=== PATIENT | female | born 1975 | race African-American/Black ===

== ENCOUNTER 2020-10-10 09:17 | Emergency (ER) | payer MEDICARE, OTHER, MEDICAID, SELFPAY ==
[2020-10-10 09:25] VITALS: BP 134/83; PULSE 101; RESP 18; TEMP 37.1; O2SAT 99
[2020-10-10] MEDS: SODIUM CHLORIDE 0.9% IV 1,000 ML 999 ML IV CONT (09:51)
[2020-10-10] MEDS: METOCLOPRAMIDE HCL INJ 10 MG/2 ML VIAL IV PUSH (09:51)
--- NOTE | 2020-10-10 09:58 | ED.GENADULT ---
HPI - General Adult General Chief complaint: Nausea/Vomiting/Diarrhea Stated complaint: side effects from meds Time Seen by Provider: 10/10/20 09:18 Source: patient and family Mode of arrival: ambulatory Limitations: no limitations History of Present Illness HPI narrative: Patient presents with chief complaint of nausea and vomiting that has been present since being [facility] on Friday due to seizures. Patient has a history of seizures and sees Dr. Cardoza and is prescribed Dilantin daily. Patient admits that she does not take her Dilantin regularly despite knowing that it controls her seizures. Patient states that she spoke to Dr. Cardoza yesterday and informed him that she has been having nausea and vomiting since Friday and he prescribed a nausea medication that she believes is either Reglan or Zofran which she has taken twice and has helped some with the nausea. Patient states that she is on 3 capsules of Dilantin daily but she skipped her dose yesterday and took a dose this morning. Patient states that she was told by Dr. Cardoza that the reason she has had seizures is because she has a well her Dilantin levels to get too low. Patient denies having any additional seizures since Friday. Patient denies headache, nuchal rigidity, abdominal pain, diarrhea,, chest pain or shortness of breath. Related Data Home Medications Medication Instructions Recorded Confirmed phenytoin sodium extended 100 mg PO 10/10/20 Allergies Allergy/AdvReac Type Severity Reaction Status Date / Time Sulfa (Sulfonamide Allergy Mild hives Verified 10/10/20 09:42 Antibiotics) egg Allergy Anaphylaxis Verified 10/10/20 09:31 pineapple Allergy Hives Verified 10/10/20 09:31 donuts Allergy Hives Uncoded 10/10/20 09:31 Review of Systems Review of Systems: Narrative: CONSTITUTIONAL: Denies fever, chills, or sweats. EYES: Denies visual changes, redness, or discharge. ENT: Denies rhinorrhea, congestion, sore throat, or otalgia. CARDIOVASCULAR: Denies chest pain, palpitations, or edema. RESPIRATORY: Denies cough or dyspnea. GASTROINTESTINAL: Reports nausea vomiting denies abdominal pain or diarrhea. GENITOURINARY: Denies dysuria or hematuria. SKIN: Denies rash or itching. MUSCULOSKELETAL: Denies back pain, joint pain, or myalgia. NEUROLOGIC: Denies headache, numbness, dizziness, or weakness. PSYCHIATRIC: Denies anxiety or depression. PMFSH Social History Social History Gender identity (if verbalized by the patient): Female Exam Narrative: Exam Narrative: GENERAL: Well-appearing, well-nourished, and in no acute distress. HEAD: Normocephalic, atraumatic. EYES: PERRLA and EOMI. ENT: Nares clear, no rhinorrhea or epistaxis. Mucous membranes moist. Bilateral TMs pearly wiley nonbulging NECK: Supple. No adenopathy or masses. No rigidity. Range of motion intact. CHEST: Clear to auscultation. No respiratory distress. No wheezes rales or rhonchi HEART: Regular rate and rhythm. No murmur heard. Normal peripheral pulses. ABDOMEN: Soft, nontender, nondistended, normal active bowel sounds. EXTREMITIES: Normal range of motion. No edema. SKIN: Warm, dry, no rash. NEURO: No focal deficits. Alert and oriented x3. Patient speaking in complete sentences without difficulty. No active seizures at this time. PSYCH: Normal mood and affect. Course Vital Signs Vital signs: Vital Signs Temperature 98.8 F 10/10/20 09:25 Pulse Rate 101 H 10/10/20 09:25 Respiratory Rate 18 10/10/20 09:25 Blood Pressure 134/83 10/10/20 09:25 Pulse Oximetry 99 10/10/20 09:25 Temperature 98.8 F 10/10/20 09:25 Pulse Rate 89 10/10/20 11:56 Respiratory Rate 17 10/10/20 11:56 Blood Pressure 136/78 10/10/20 11:56 Pulse Oximetry 98 10/10/20 11:56 Medical Decision Making MDM Narrative Medical decision making narrative: Consult with patient's neurologist Dr. Cardoza who states patient should continue taking her 300 mg of Dilantin and follow-up wit
[2020-10-10 10:33] LABS: Basophils Percent Auto 0.2 % (0.2-1.2); Hematocrit 36.6 % (37.0-47.0); Hemoglobin 10.7 g/dL (12.0-15.0); Immature Granulocyte Absolute 0.01 K/mm3 (0.00-0.031); Immature Granulocyte Percent A 0.2 % (0-0.5); Lymphocytes Absolute Auto 0.51 K/mm3 (0.9-3.2); Lymphocytes Percent Auto 12.5 % (18.3-44.2); Mean Corpuscular HGB Conc 29.2 g/dl (32-36); Mean Corpuscular Hemoglobin 20.3 pg (26-34); Mean Corpuscular Volume 69.4 fl (80-100); Mean Platelet Volume 10.6 fl (7.4-10.4); Monocytes Absolute Auto 0.3 K/mm3 (0.1-0.6); Monocytes Percent Auto 8.4 % (2.6-8.5); Neutrophils Absolute Auto 3.2 K/mm3 (1.3-6.7); Neutrophils Percent Auto 78.7 % (45.5-73.1); Platelet Count Result 253 k/mm3 (150-375); Red Blood Count 5.27 M/mm3 (4.2-5.4); Red Cell Distribution Width 17.7 % (11.5-14.5); White Blood Count 4.1 K/mm3 (4.5-10.0)
[2020-10-10 10:40] VITALS: BP 146/80; PULSE 80; RESP 14; O2SAT 98
[2020-10-10 10:41] LABS: Add Urine Microscopic? YES; Appearance Urine Clear (Clear); Bacteria Urine Trace /hpf; Bilirubin Urine Negative (Negative); Blood Urine Negative (Negative); Color Urine Yellow (Yellow); Glucose Urine UA Negative (Negative); Ketones Urine 1+ mg/dL (Negative); Leukocyte Esterase Ur Trace LEU/UL (Negative); Mucus Urine Moderate /lpf; Nitrate Urine Negative (Negative); Protein Urine 2+ mg/dL (Negative); Squamous Epithelial Cell Urine Occasional /hpf (Few); Urobilinogen Urine Negative mg/dL (<2.0)
[2020-10-10 10:43] LABS: Alanine Aminotransferase 13 U/L (4-35); Albumin Level 4.1 g/dL (3.5-5.1); Alkaline Phosphatase 47 U/L (38-126); Anion Gap 10 mmol/L (8-16); Aspartate Amino Transferase 23 U/L (14-36); Bilirubin,Total < 0.1 mg/dL (0.2-1.3); Blood Urea Nitrogen 8 mg/dL (7-17); Calcium 8.7 mg/dL (8.4-10.2); Carbon Dioxide 27 mmol/L (22-30); Chloride 102 mmol/L (98-107); Estimated CRCL calculation 75 ml/min; Estimated Glomerular Filt Rate > 60; Glucose 102 mg/dL (65-105); Potassium 3.7 mmol/L (3.4-5.0); Sodium 139 mmol/L (137-145)
[2020-10-10 11:00] LABS: Phenytoin Dilantin < 3 ug/mL (10-20)
[2020-10-10 11:56] VITALS: BP 136/78; PULSE 89; RESP 17; O2SAT 98
[2020-10-10 12:18] VITALS: BP 136/78; PULSE 89; RESP 17; O2SAT 98
== END 2020-10-10 12:19 | disposition home or self-care (01) ==
PROVIDERS: Physician Assistant; Emergency Provider Emergency Medicine; PCP Internal Medicine Infectious Disease
DX: N39.0 Urinary tract infection, site not specified (principal); R11.2 Nausea with vomiting, unspecified; R56.9 Unspecified convulsions
CPT/HCPCS: 36415; 80053; 80185; 81001; 85025; 85055; 87086; 87088; 96361; 96374; 99284; J2765; J7030

== ENCOUNTER 2020-12-01 14:26 | Outpatient (CLI) | payer OTHER, MEDICARE, MEDICAID, SELFPAY ==
[2020-12-01 14:46] LABS: Basophils Percent Auto 0.3 % (0.2-1.2); Eosinophils Absolute Auto 0.2 K/mm3 (0-0.3); Eosinophils Percent Auto 3.2 % (0-4.4); Hematocrit 32.9 % (37.0-47.0); Hemoglobin 9.6 g/dL (12.0-15.0); Immature Granulocyte Absolute 0.03 K/mm3 (0.00-0.031); Immature Granulocyte Percent A 0.5 % (0-0.5); Lymphocytes Percent Auto 31.9 % (18.3-44.2); Mean Corpuscular HGB Conc 29.2 g/dl (32-36); Mean Corpuscular Hemoglobin 20.7 pg (26-34); Mean Corpuscular Volume 70.9 fl (80-100); Mean Platelet Volume 9.6 fl (7.4-10.4); Monocytes Absolute Auto 0.6 K/mm3 (0.1-0.6); Monocytes Percent Auto 9.9 % (2.6-8.5); Neutrophils Absolute Auto 3.2 K/mm3 (1.3-6.7); Neutrophils Percent Auto 54.2 % (45.5-73.1); Platelet Count Result 404 k/mm3 (150-375); Red Blood Count 4.64 M/mm3 (4.2-5.4); Red Cell Distribution Width 19.9 % (11.5-14.5)
[2020-12-01 15:04] LABS: Hypochromasia 1+ (NORMAL); Ovalocytes 1+ (NORMAL); Platelet Estimate Increased (Adequate)
[2020-12-01 15:05] LABS: Crenated RBC 1+ (NORMAL); Tear Drop Cells 1+ (NORMAL)
[2020-12-01 17:54] LABS: Phenytoin Dilantin < 3 ug/mL (10-20)
== END 2020-12-01 14:27 | disposition home or self-care (01) ==
PROVIDERS: Anesthesiology; PCP Internal Medicine Infectious Disease; Visit Provider Obstetrics & Gynecology
DX: N85.2 Hypertrophy of uterus (principal); G40.909 Epilepsy, unspecified, not intractable, without status epilepticus; Z01.818 Encounter for other preprocedural examination
CPT/HCPCS: 36415; 80185; 85025

== ENCOUNTER 2020-12-05 01:32 | Outpatient (CLI) | payer OTHER, MEDICARE, MEDICAID, SELFPAY ==
[2020-12-05 19:22] LABS: SARS-CoV-2 RNA PCR Positive
== END 2020-12-05 01:33 | disposition home or self-care (01) ==
LOC: ANHCOVIDDT 01:32
PROVIDERS: PCP Internal Medicine Infectious Disease; Visit Provider Obstetrics & Gynecology
DX: U07.1 COVID-19 (principal)
CPT/HCPCS: C9803; U0003; U0005

== ENCOUNTER 2021-01-05 00:35 | Day surgery (SDC) | payer OTHER, MEDICARE, MEDICAID, SELFPAY ==
[2020-11-30 16:04] VITALS: BMI 38.5
--- NOTE | 2020-12-06 08:47 | PM.IMHP ---
H&P: HPI History of Present Illness Date/Time: 12/06/20 08:47 Chief Complaint: fibroids Narrative: Rory Georges is a 45 year old female is admitted for robotic measured made and bilateral salpingectomy. The right ovary is surgically absent. She has had pain and bleeding. I offered her cannot open EC common intact as versus surgical intervention she opted for the latter. The left tube will be taken this procedure. Risks and benefits reviewed including but not exclusive , aspiration 1 8, bleeding, transfusion, perforation bladder, ureters, or other internal organs with need for open laparotomy. She was good understanding. She had all questions answered. She asked to proceed Review of Systems Review of Systems: All systems reviewed & are unremarkable except as noted in HPI and below PMFSH Social History Social History Substance use: never Gender identity (if verbalized by the patient): Female Spiritual care concerns: No Meds Home Medications and Allergies Home Medications Medication Instructions Recorded Confirmed Type phenytoin sodium extended 100 mg PO TID 10/10/20 11/30/20 History albuterol 90 mcg INHALATION PRN PRN 11/30/20 11/30/20 History Allergies Allergy/AdvReac Type Severity Reaction Status Date / Time Sulfa (Sulfonamide Allergy Mild hives Verified 11/30/20 16:02 Antibiotics) egg Allergy Anaphylaxis Verified 11/30/20 16:02 pineapple Allergy Hives Verified 11/30/20 16:02 donuts Allergy Hives Uncoded 11/30/20 16:02 Exam Const: General: no acute distress Eyes: General: appearance normal, both eyes and all related structures Neck: Neck: supple and no JVD Thyroid: thyroid normal Resp: Effort & Inspection: normal respiratory effort Auscultation: clear to auscultation bilaterally Cardio: Rate: regular rate Rhythm: regular rhythm GI: Inspection: non-distended GI Palp: Yes Soft to palpation, No Tenderness to palpation present (GI) and No Guarding due to palpation present (GI) Auscultation: normal bowel sounds : General: Yes bladder normal to inspection External Female Exam: normal external appearance Speculum Exam - Vagina: normal appearance of the vagina Speculum Exam - Cervix: normal appearance of the cervix Bimanual exam- vagina & uterus: enlarged Skin: General skin exam: no rashes or lesions noted Extrem: General: normal to inspection and no edema Psych: Mental Status: mental status grossly normal Affect: normal affect Assessment and Plan Additional Plan impression: Enlarged fibroid uterus Plan: Robotic total vaginal hysterectomy and left salpingectomy
--- NOTE | 2021-01-01 15:01 | PC.NURSE ---
1500-PT RESCHEDULED FROM 12/08/2020 AND STATES NO CHANGES OTHER THAN SYMPTOM FREE POSITIVE COVID TEST. MEDICATIONS/ALLERGIES REVIEWED. INSTRUCTIONS REVIEWED AND UPDATED. WILL COMPLETE T/S ON DAY OF SURGERY. SPOKE WITH DR. MONROE-NO NEED TO REPEAT PHENYTOIN LEVEL (AWARE RESULT NONTHERAPEUTIC).
--- NOTE | 2021-01-02 14:20 | PM.IMHP ---
H&P: HPI History of Present Illness Date/Time: 01/02/21 14:20 Chief Complaint: fibroids Narrative: Rory Georges is a 45 year old female is admitted for robotic total vaginectomy and left salpingectomy secondary to her and pelvic pain and uterine fibroids. She has heavy bleeding pain and discomfort. Ultrasound has noted the uterus to be markedly enlarged. Risks and benefits were reviewed in full Review of Systems Review of Systems: All systems reviewed & are unremarkable except as noted in HPI and below PMFSH Social History Social History Substance use: never Gender identity (if verbalized by the patient): Female Spiritual care concerns: No Meds Home Medications and Allergies Home Medications Medication Instructions Recorded Confirmed Type phenytoin sodium extended 100 mg PO TID 10/10/20 01/01/21 History albuterol 90 mcg INHALATION PRN PRN 11/30/20 01/01/21 History Allergies Allergy/AdvReac Type Severity Reaction Status Date / Time egg Allergy Severe Anaphylaxis Verified 01/01/21 14:54 pineapple Allergy Severe Hives Verified 01/01/21 14:54 Sulfa (Sulfonamide Allergy Mild hives Verified 11/30/20 16:02 Antibiotics) donuts Allergy Severe Hives Uncoded 01/01/21 14:54 Exam Const: General: no acute distress Eyes: General: appearance normal, both eyes and all related structures Neck: Neck: supple and no JVD Thyroid: thyroid normal Resp: Effort & Inspection: normal respiratory effort Auscultation: clear to auscultation bilaterally Cardio: Rate: regular rate Rhythm: regular rhythm GI: Inspection: non-distended GI Palp: Yes Soft to palpation, No Tenderness to palpation present (GI) and No Guarding due to palpation present (GI) Auscultation: normal bowel sounds : General: Yes bladder normal to inspection External Female Exam: normal external appearance Speculum Exam - Vagina: normal appearance of the vagina Speculum Exam - Cervix: normal appearance of the cervix Bimanual exam- vagina & uterus: enlarged Skin: General skin exam: no rashes or lesions noted Extrem: General: normal to inspection and no edema Psych: Mental Status: mental status grossly normal Affect: normal affect Assessment and Plan Additional Plan impression: Enlarged uterus with uterine fibroids and pain Plan: Robotic total vaginectomy and left salpingectomy
[2021-01-05] VITALS (16 sets, daily range): BP systolic 134–158; BP diastolic 7–103; PULSE 66–94; RESP 14–22; TEMP 36.1–36.7; O2SAT 99–100; BMI 39.4
--- NOTE | 2021-01-05 06:20 | WPDHPUPDATE1 ---
History and Physical Update Update Date/Time: 01/05/21 06:20 History and Physical has been reviewed, including an updated exam of the patient. There are NO changes in the patient's condition. Risks, benefits, and alternatives have been discussed and questions answered. Patient agrees to proceed with procedure.
[2021-01-05] MEDS: ACETAMINOPHEN 500 MG TABLET 1000 MG PO (08:34)
[2021-01-05] MEDS: LACTATED RINGERS 1,000 ML 30 ML IV CONT ×2 (08:34→12:17)
[2021-01-05] MEDS: KETOROLAC 15 MG/ML VIAL (*BKC) IV PUSH (08:34)
--- NOTE | 2021-01-05 09:06 | WPDANESEPPF ---
Anes - Initial Pre Proc Eval Procedure: Operation Date: 01/05/21 09:30 Proposed Procedures p Robotic Assisted Total Vaginal Hysterectomy, Left Salpingectomy - Harvinder Zheng MD Date/Time: 01/05/21 09:06 Surgeon: Harvinder Zheng MD Pre Op Diagnosis: Pelvic Pain, Enlarged Uterus,Fibroids Patient Data Age: 45 Gender: F Height: 5 ft 2 in Weight: 97.7 kg Last Vital Signs Temp 97.2 F L 01/05/21 08:00 Pulse 88 01/05/21 08:00 Resp 18 01/05/21 08:00 BP 149/99 H 01/05/21 08:00 Pulse Ox 100 01/05/21 08:00 Allergies Allergy/AdvReac Type Severity Reaction Status Date / Time egg Allergy Severe Anaphylaxis Verified 01/05/21 08:05 pineapple Allergy Severe Hives Verified 01/05/21 08:05 Sulfa (Sulfonamide Allergy Mild hives Verified 01/05/21 08:05 Antibiotics) donuts Allergy Severe Hives Uncoded 01/05/21 08:05 Home Medications Medication Instructions Recorded Confirmed Type phenytoin sodium extended 100 mg PO TID 10/10/20 01/05/21 History albuterol 90 mcg INHALATION PRN PRN 11/30/20 01/05/21 History Patient hx anesthesia problems: none Family hx anesthesia problems: none [facility] Past Medical History Medical History (Updated 01/05/21 @ 08:08 by Mike Brown MD) Asthma Seizure last one September 2020 Social History Social History Substance use: never Gender identity (if verbalized by the patient): Female Spiritual care concerns: No Anes - Eval Final PreProcedure Day of Procedure 01/05/21 09:06 Patient weight: morbidly obese Heart: regular rate and rhythm Lungs: clear to auscultation Airway: Mallampati scale class III Neurological: alert and oriented Last oral intake: >/= 8 hours ASA classification: III Emergent: no Anesthetic plan: proceed Anesthesia type and monitoring: general ETT and standard monitoring Informed Consent: The patient's anesthetic plan and its attendant risks and benefits were discussed with the patient/family/POA. Questions were solicited and answers provided to the satisfaction of the patient/family/POA.
--- NOTE | 2021-01-05 09:09 | SUR.PREOP ---
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 NO NEED TO UPDATE.
[2021-01-05] MEDS: ceFAZolin 2 GM/D5W 50 ML 2 GM/50 ML BAG IVPB (09:33)
--- NOTE | 2021-01-05 12:04 | PM.PROC ---
Procedure Note - Detailed Date of procedure: 01/05/21 Pre-op diagnosis: Pelvic Pain, Enlarged Uterus,Fibroids Surgeon: Harvinder Zheng MD Postop diagnosis: Pelvic pain/symptomatic uterine fibroids Procedure: Robotic total vaginal hysterectomy and left salpingectomy Anesthesia: General endotracheal EBL: 200cc Complications: None Findings: A markedly enlarged fibroid uterus. Absent right ovary and tube normal-appearing left tube and ovary Description of procedure: The patient was prepped and draped in the normal sterile fashion placed in dorsal lithotomy position. Under excellent general endotracheal anesthesia weighted speculum placed in posterior fornix of vagina. Anterior lip of the cervix grasped with single-tooth tenaculum and the uterus sounded to 12cm. Serial dilatation with fragmented dilators performed followed by passage of the 10. GABINO and the 3. And half cold cup. Next the 16 [place] catheter was placed in the bladder. The weighted speculum was removed. The gloves were changed. A supraumbilical incision made in the Veress needle passed in the abdomen and the abdomen was filled with CO2 gas [id number]. The trocar was advanced in the abdomen. Downside visualized and no injury seen. The patient placed in Trendelenburg and right left lateral quadrant incisions made. The 8mm trocars advanced under direct visualization assuring no injury. An 8mm trocar was advanced in right upper assuring no injury. The robot was docked. Attention was turned to the console. Adhesions were seen from the anterior wall to the omentum and this was sharply dissected with these. The uterus was notably large bulky with multiple a small sized fibroids. The round ligament on left was grasped, burned, cut anteriorly the bladder flap was formed bladder reflected caudally to the opposite round ligament was clamped, burned, cut. The right ovary and tube were noted to be missing the left tube was normal as was the left ovary and the tube was sharply dissected left attached to the its uterine origins. Cardinal and broad ligaments on the left were serially skeletonized although this was somewhat difficult secondary to the uterine fibroids but they were brought down to the level of the uterine vessels on the left. Uterine vessels were serially skeletonized and individually clamped, burned, cut. These were large tortuous as expected. The right utero-ovarian ligament was skeletonized this was clamped, burned, cut. The cardinal and broad ligaments were then serially skeletonized along the lateral edge of the cervix and uterus clamping burning and cutting until the uterine vessels could be seen on the right. These were individually clamped, burned, cut. Blanching of the uterus was seen as a remark and number of fibroids present these were Schueler gout the for the colpotomy incision was made and would be used later to be taken out in its no fashion. The once these had been cleared, the colpotomy incision was made. The cervix was brought through the vagina. The fibroids for followed. One loosened but fell into the cul-de-sac and this was grabbed and removed through the vagina. Blood loss was estimated 200cc at that point. The vagina was closed with continuous running 0V lock from lateral edge to lateral edge back to the midline. Irrigation undertaken and blood loss estimated 200cc hematuria was placed on the raw surface area and the robot was undocked after and gas followed removal. Trocars removed and the incisions closed with 4 O Monocryl and glue. The patient was awakened. She went to recovery in satisfactory condition. All sponge, needle, instrument counts were correct. There were no immediate complications
[2021-01-05] MEDS: fentaNYL CITRATE INJ (*CRX) 100 MCG/2 ML VIAL 25 MCG IV PUSH ×3 (12:54→13:14)
--- NOTE | 2021-01-05 13:45 | PC.NURSE ---
This patient, Rory Georges, was received from PACU per bed to room 278. Patient/family oriented to unit policies and routines
[2021-01-05] MEDS: DEXTROSE 5%/LACTATED RINGERS 1,000 ML 125 ML IV CONT ×2 (14:21→22:28)
[2021-01-05] MEDS: MORPHINE SULFATE (*CRX) 4 MG/ML INJ IV PUSH (14:21)
[2021-01-05] MEDS: KETOROLAC 30 MG/ML VIAL (*BKC) IV PUSH ×2 (16:38→22:29)
[2021-01-05] MEDS: ONDANSETRON INJ 4 MG/2 ML VIAL IV PUSH (16:51)
[2021-01-05] MEDS: PHENYTOIN SODIUM 100 MG CAP PO (22:33)
[2021-01-06 05:09] VITALS: BP 114/70; PULSE 86; RESP 16; TEMP 36.6; O2SAT 98
[2021-01-06] MEDS: HYDROcodone/acetaminophen (*CRX) 10-325 MG TABLET 1 TAB PO (05:12)
[2021-01-06] MEDS: IBUPROFEN 600 MG TABLET PO ×2 (05:13→12:53)
[2021-01-06] MEDS: DEXTROSE 5%/LACTATED RINGERS 1,000 ML 125 ML IV CONT (05:13)
[2021-01-06 06:16] LABS: Basophils Percent Auto 0.1 % (0.2-1.2); Eosinophils Percent Auto 0.5 % (0-4.4); Hematocrit 24.8 % (37.0-47.0); Hemoglobin 7.3 g/dL (12.0-15.0); Immature Granulocyte Absolute 0.03 K/mm3 (0.00-0.031); Immature Granulocyte Percent A 0.4 % (0-0.5); Lymphocytes Absolute Auto 1.23 K/mm3 (0.9-3.2); Lymphocytes Percent Auto 16.9 % (18.3-44.2); Mean Corpuscular HGB Conc 29.4 g/dl (32-36); Mean Corpuscular Hemoglobin 20.3 pg (26-34); Mean Corpuscular Volume 68.9 fl (80-100); Monocytes Absolute Auto 0.7 K/mm3 (0.1-0.6); Monocytes Percent Auto 8.9 % (2.6-8.5); Neutrophils Absolute Auto 5.3 K/mm3 (1.3-6.7); Neutrophils Percent Auto 73.2 % (45.5-73.1); Platelet Count Result 314 k/mm3 (150-375); Red Cell Distribution Width 18.2 % (11.5-14.5); White Blood Count 7.3 K/mm3 (4.5-10.0)
[2021-01-06 06:48] LABS: Hypochromasia 3+ (NORMAL); Tear Drop Cells 2+ (NORMAL)
[2021-01-06 06:52] LABS: Platelet Estimate Adequate (Adequate)
--- NOTE | 2021-01-06 08:00 | PC.NURSE ---
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 PT verbalized understanding of such care.
--- NOTE | 2021-01-06 08:11 | PM.DS ---
DS: Admitting Diagnosis Admitting Diagnosis Admitting Diagnosis: pelvic pain uterine fibroids DS: Summary Hospital Course Hospital Course: Rory Georges was admitted after robotic assisted total laparoscopic hysterectomy and left salpingectomy for pelvic pain and uterine fibroids. The above procedure was performed with no complications. She is doing well post op. She states her pain is well controlled with PO medications. She reports minimal bleeding. She is ambulating up to the chair. Her kilpatrick catheter was removed. She is tolerating PO without N/V. She reports passing flatus. Status at Discharge Overall status at discharge: patient is progressing back to baseline Time Spent with Patient Time attestation: Total time spent providing and/or coordinating discharge services: Time spent: Less than 30 minutes Exam Const: General: comfortable and no acute distress Limitations: no limitations Resp: Effort & Inspection: normal respiratory effort Auscultation: clear to auscultation bilaterally Cardio: Rate: regular rate Rhythm: regular rhythm GI: Inspection: non-distended GI Palp: Yes Soft to palpation, Yes Tenderness to palpation present (GI) (milder tenderness to deep palpation) and No Guarding due to palpation present (GI) Auscultation: normal bowel sounds Other: incisions C/D/I covered with dermabond Urinary Catheter: Urinary Catheter: urine clear Skin: General skin exam: normal color Extrem: General: normal to inspection Psych: Mental Status: mental status grossly normal Affect: normal affect DS: Data Data Completed and Pending Pending studies at discharge: Pending at discharge 01/05/21 11:51 Surgical [PTH] Routine Labs on day of discharge: Labs from last 24 hours 01/06/21 01/05/21 04:46 08:33 WBC 7.3 RBC 3.60 L Hgb 7.3 L Hct 24.8 L MCV 68.9 L MCH 20.3 L MCHC 29.4 L RDW 18.2 H Plt Count 314 MPV 11.0 H Immature Gran % (Auto) 0.4 Neut % (Auto) 73.2 H Lymph % (Auto) 16.9 L [place] % (Auto) 8.9 H Eos % (Auto) 0.5 Baso % (Auto) 0.1 L Lymph # (Auto) 1.23 [place] # (Auto) 0.7 H Eos # (Auto) 0.0 Baso # (Auto) 0.0 Abs Immat Gran (auto) 0.03 Absolute Neuts (auto) 5.3 Absolute Nucleated RBC 0.0 Nucleated RBC % 0.0 Platelet Estimate Adequate Hypochromasia 3+ Tear Drop Cells 2+ Blood Type O Positive Antibody Screen Negative Discharge Plan Discharge Patient Disposition: Home, Self-Care Patient Instructions: Laparoscopic Hysterectomy (DC) Stand Alone Forms: General Discharge Instructions Follow-up/Referrals: Harvinder Zheng MD [Physician] - Discharge Medications: New ibuprofen 600 mg Tablet 600 mg PO Q6H PRN (Reason: Cramping) Qty: 30 RF: 0 oxycodone-acetaminophen [Endocet] 5-325 mg tablet 1 tablet PO Q6H PRN (Reason: pain) Qty: 28 RF: 0 ferrous sulfate [FeroSul] 325 mg (65 mg iron) tablet 325 mg PO BID Qty: 60 RF: 0 Continued phenytoin sodium extended 100 mg capsule 100 mg PO TID RF: 0 albuterol 90 mcg/actuation Aerosol 90 mcg INHALATION PRN PRN (Reason: Shortness Of Breath) RF: 0
--- NOTE | 2021-01-06 08:53 | P.PNAN_ITS ---
Anes - Prog Note Post-Op Date/Time: 01/06/21 08:53 Cardiovascular status: normal Respiratory status: normal Airway patency: baseline Mental status: baseline Post-Op hydration status: normal Vital Signs: Last Vital Signs Temp 36.6 C 01/06/21 05:09 Pulse 86 01/06/21 05:09 Resp 16 01/06/21 05:09 BP 114/70 01/06/21 05:09 Pulse Ox 98 01/06/21 05:09 Pain Score (VAS): 0 I/O: Intake & Output 01/05/21 01/06/21 01/06/21 23:59 07:59 15:59 Intake Total 1000 1200 Output Total 150 500 Balance 850 700 Laboratory Tests 01/06/21 04:46 01/05/21 01/06/21 08:33 04:46 WBC 7.3 RBC 3.60 L Hgb 7.3 L Hct 24.8 L MCV 68.9 L MCH 20.3 L MCHC 29.4 L RDW 18.2 H Plt Count 314 MPV 11.0 H Immature Gran % (Auto) 0.4 Neut % (Auto) 73.2 H Lymph % (Auto) 16.9 L [place] % (Auto) 8.9 H Eos % (Auto) 0.5 Baso % (Auto) 0.1 L Lymph # (Auto) 1.23 [place] # (Auto) 0.7 H Eos # (Auto) 0.0 Baso # (Auto) 0.0 Abs Immat Gran (auto) 0.03 Absolute Neuts (auto) 5.3 Absolute Nucleated RBC 0.0 Nucleated RBC % 0.0 Platelet Estimate Adequate Hypochromasia 3+ Tear Drop Cells 2+ Blood Type O Positive Antibody Screen Negative Post-procedural complaints: none Patient Feedback: Patient satisfied with anesthetic care.
[2021-01-06 09:45] VITALS: BP 130/78; PULSE 80; PULSE 83; RESP 18; TEMP 36.9; O2SAT 100
[2021-01-06] MEDS: ENOXAPARIN 40 MG/0.4 ML SYRINGE SUB-Q (10:11)
[2021-01-06] MEDS: SIMETHICONE 80 MG TAB.CHEW PO ×2 (10:12→12:53)
[2021-01-06] MEDS: HYDROcodone/acetaminophen (*CRX) 5-325 MG TABLET 1 TAB PO ×2 (10:12→12:54)
[2021-01-06] MEDS: DOCUSATE SODIUM 100 MG CAPSULE PO (10:12)
[2021-01-06] MEDS: PHENYTOIN SODIUM 100 MG CAP PO ×2 (10:12→15:15)
--- NOTE | 2021-01-06 15:15 | PC.NURSE ---
PT received discharge instructions per protocol and verbalized understanding of such care.
--- NOTE | 2021-01-06 15:46 | PC.NURSE ---
PT discharged to home via wheelchair to waiting car Accompanied by spouse. Follow up appts confirmed
== END 2021-01-06 15:46 | disposition home or self-care (01) ==
LOC: ANHSURGERY 07:34 → ANHOB2 13:41
PROVIDERS: PCP Internal Medicine Infectious Disease; Visit Provider Obstetrics & Gynecology
PROC: (CPT 58554; principal; 2021-01-05 09:30)
DX: R10.2 Pelvic and perineal pain (principal); D25.0 Submucous leiomyoma of uterus; D25.1 Intramural leiomyoma of uterus; D25.2 Subserosal leiomyoma of uterus; J45.909 Unspecified asthma, uncomplicated; G40.909 Epilepsy, unspecified, not intractable, without status epilepticus; E66.01 Morbid (severe) obesity due to excess calories; Z68.39 Body mass index [BMI] 39.0-39.9, adult
CPT/HCPCS: 58554; S2900; 36415; 85025; 86850; 86900; 86901; 88307; 99199; A9270; C9803; J0330; J0360; J0690; J1100; J1650; J1885; J2250; J2270; J2405; J2704; J2710; J3010; J7030; J7120; J7121; U0003; U0005

== ENCOUNTER 2023-01-31 06:54 | Outpatient (CLI) | payer OTHER, MEDICARE, MEDICAID, SELFPAY ==
--- NOTE | ~2023-01-31 | MR_ITS ---
EXAMINATION: MR brain/brain stem wo con DATE: 01/31/2023 07:51 INDICATION: Seizure. Fall. TECHNIQUE: Magnetic resonance imaging (MRI) of the brain and brainstem was performed without intraven ous contrast. COMPARISON: None. FINDINGS: The hippocampi are normal and symmetric. There is no intracranial hemorrhage, acute infarct ion, or abnormal intracranial mass lesion. The ventricles are normal in size. There is mucosal thicke biju in the paranasal sinuses. The mastoid air cells are normal. The orbits are normal. IMPRESSION: 1. Normal brain. Reviewed, dictated and finalized at location A. RATING SUPERVISOR IMPRESSION: 1. Normal brain.
== END 2023-01-31 06:55 | disposition home or self-care (01) ==
PROVIDERS: PCP Internal Medicine Infectious Disease; Visit Provider Psychiatry & Neurology Neurology
DX: G40.909 Epilepsy, unspecified, not intractable, without status epilepticus (principal)
CPT/HCPCS: 70551

== ENCOUNTER 2023-02-03 06:37 | Outpatient (CLI) | payer OTHER, MEDICARE, MEDICAID, SELFPAY ==
--- NOTE | 2023-02-04 12:33 | WPDNEUROLOGY ---
Neurology EEG Report General Information Date of Study: 02/03/23 TEST Routine EEG DIAGNOSIS Seizures CONDITION OF RECORDING Awake, drowsy EEG NUMBER [id number] CLINICAL HISTORY Patient has a history of seizures since age 7. She continues to have intermittent smaller seizures. EEG DESCRIPTION During the awake state with eyes closed the background consists of 8-9 Hz posterior dominant rhythm which attenuates appropriately with eye opening. The recording is continuous. There is a well developed anterior-posterior gradient. No significant asymmetries of background activities are noted. With drowsiness there is waxing and waning of the dominant rhythm with eventual replacement by a mixture of beta, alpha, and theta activity. Patient did not enter stage II sleep. There are no epileptiform discharges or seizures during this recording. Photic stimulation did not elicit any abnormal photoparoxysmal response. IMPRESSION This is a normal routine EEG recorded in awake and drowsy states. There are no electrographic seizures identified, nor are there any epileptiform discharges. Please note that a normal EEG cannot exclude a seizure disorder. Clinical correlation is recommended.
== END 2023-02-03 06:38 | disposition home or self-care (01) ==
PROVIDERS: PCP Internal Medicine Infectious Disease; Visit Provider Psychiatry & Neurology Neurology
DX: R56.9 Unspecified convulsions (principal)
CPT/HCPCS: 95816

== ENCOUNTER 2023-05-15 10:12 | Outpatient (CLI) | payer OTHER, MEDICARE, MEDICAID, SELFPAY ==
--- NOTE | 2023-05-21 09:39 | WPDSLEEPSTUD ---
Sleep Study Date of Study: 05/15/23 Ordering Provider: Thomas Vazquez MD Interpreting Physician: Jacquelyn Burnett MD Sleep Study Type: CPAP Titration Height: 1.57 m Weight: 97.522 kg Body Mass Index: 39.3 Neck Circumference (inches): 12.5 Tripp: 4 Reason for Sleep Study * 03/28/2023- Home Sleep Test through [facility] [place] showing an apnea-hypopnea index of 27.3, supine AHI 29.8, lowest saturation 87%. She presents for a CPAP titration. Sleep History José Manuel Valadez is a 48-year-old female with history of asthma and a seizure disorder who had an episode of chest pain while she was at work. Her blood pressure was elevated at 160/110, the first time ever. When she presented to the ER, her blood pressures were in the 160s. She has a new diagnosis of hypertension. Her switchboard receptionist ordered a home sleep test which was positive for moderate COMFORT, 03/28/2023 showing an AHI of 27.3. At times she has a difficult time falling asleep, she wakes up in the director of early childhood hours and she has excessive daytime sleepiness. She does not awaken from sleep short of breath. She never awakens at night with heartburn, belching or cough.??She frequently snores, rarely snores loudly enough that others complain. She rarely has trouble sleeping when she has a cold. She never suddenly wakes up gasping for breath during the night. She never has breathing problems at night. She occasionally sweats excessively at night. She rarely notices her heart pounding or beating irregularly during the night. She frequently falls asleep during the day, rarely involuntarily, although she never falls asleep while driving. She never experiences loss of muscle tone with strong emotion. 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 She never feels paralyzed on waking or falling asleep. She never experiences vivid dreams upon waking or falling asleep. She never feels afraid of going to sleep. She rarely has nightmares. She frequently recalls her dreams. She never has thoughts racing through her mind. She never feels sad or depressed. She rarely feels anxiety or worry about things. She never notices parts of her body jerk. She rarely kicks during the night. She never feels crawling or aching feelings in her legs. She never feels leg pain at night. She never grinds her teeth or has morning jaw pain. She rarely feels bothered by pain during the day, never is awakened by pain at night. She rarely wakes up feeling stiff in the morning with sore achy muscles, never wakes up with pain in the neck and spine. ? ? Normal bedtime is around 10:00 p.m., not taking very long to fall asleep. She may wake 2-3 times at night on average 4-5 minutes before returning to sleep. She wakes the morning at 6:00 a.m.. She takes naps in the afternoon or evening. A short nap lasting 10 or 15 minutes might be refreshing. Most of the time she feels good on waking. She feels better in the morning and the afternoon compared to the evening. She estimates getting 9 hours of interrupted sleep at night. Habits:??Tobacco: never Caffeine: yes Alcohol:rare Recreational substances:none [facility] Past Medical History Medical History (Updated 05/21/23 @ 10:18 by Jacquelyn Burnett MD) Asthma Obstructive sleep apnea Seizure last one September 2020 Surgical History Surgical History (Updated 05/21/23 @ 10:17 by Jacquelyn Burnett MD) History of hysterectomy Social History Social History Smoking status: Unknown if ever smoked Alcohol intake: current Alcohol use details: special occasions Substance use: never Substance use type: does not use Lack of Transportation: No Lack of Food: Never True Current Housing: I Have Housing Concerned About Future Housing: No Difficulty Paying Gas/Electric Bills: No Difficulty Paying for Meds: No Currently Unemploy
[2023-05-21 10:35] VITALS: BMI 39.3
== END 2023-05-16 06:40 | disposition home or self-care (01) ==
LOC: ANHCSM 10:13
PROVIDERS: PCP Internal Medicine Infectious Disease; Visit Provider Internal Medicine Cardiovascular Disease
DX: G47.33 Obstructive sleep apnea (adult) (pediatric) (principal)
CPT/HCPCS: 95811

== ENCOUNTER 2024-06-29 14:14 | Outpatient (CLI) | payer OTHER, MEDICARE, MEDICAID, SELFPAY ==
[2024-06-29 14:55] LABS: Basophils Percent Auto 0.7 % (0.2-1.2); Eosinophils Absolute Auto 0.2 K/mm3 (0-0.3); Eosinophils Percent Auto 2.5 % (0-4.4); Hematocrit 44.2 % (37.0-47.0); Immature Granulocyte Absolute 0.05 K/mm3 (0.00-0.031); Immature Granulocyte Percent A 0.8 % (0-0.5); Lymphocytes Absolute Auto 1.73 K/mm3 (0.9-3.2); Lymphocytes Percent Auto 28.9 % (18.3-44.2); Mean Corpuscular HGB Conc 31.7 g/dl (32-36); Mean Corpuscular Hemoglobin 26.8 pg (26-34); Mean Corpuscular Volume 84.7 fl (80-100); Mean Platelet Volume 10.8 fl (7.4-10.4); Monocytes Absolute Auto 0.5 K/mm3 (0.1-0.6); Monocytes Percent Auto 7.7 % (2.6-8.5); Neutrophils Absolute Auto 3.6 K/mm3 (1.3-6.7); Neutrophils Percent Auto 59.4 % (45.5-73.1); Platelet Count Result 256 k/mm3 (150-375); Red Blood Count 5.22 M/mm3 (4.2-5.4)
[2024-06-29 14:56] LABS: Alanine Aminotransferase 13 U/L (6-35); Albumin Level 4.4 g/dL (3.5-5.1); Alkaline Phosphatase 62 U/L (38-126); Anion Gap 10 mmol/L (4-12); Aspartate Amino Transferase 20 U/L (14-36); Bilirubin,Total 0.3 mg/dL (0.2-1.3); Blood Urea Nitrogen 8 mg/dL (7-17); Calcium 9.4 mg/dL (8.4-10.2); Carbon Dioxide 26 mmol/L (22-30); Chloride 103 mmol/L (98-107); Estimated Glomerular Filt Rate > 60; Glucose 87 mg/dL (65-110); Phenytoin Dilantin 4 ug/mL (10-20); Potassium 3.9 mmol/L (3.4-5.0); Sodium 139 mmol/L (137-145)
[2024-06-30 10:34] LABS: Homocysteine 11.3 umol/L (<10.4)
[2024-06-30 18:14] LABS: Red Blood Cell Folate 393 ng/mL RBC (>280)
[2024-07-02 13:43] LABS: Vitamin D 1,25 (OH)2 Total 36 pg/mL (18-72); Vitamin D2 1,25 (OH)2 <8 pg/mL; Vitamin D3 1,25 (OH)2 36 pg/mL
[2024-07-03 08:54] LABS: Methylmalonic Acid 69 nmol/L (55-335)
== END 2024-06-29 14:15 | disposition home or self-care (01) ==
PROVIDERS: PCP Internal Medicine Infectious Disease; Visit Provider Psychiatry & Neurology Neurology
DX: G40.909 Epilepsy, unspecified, not intractable, without status epilepticus (principal); G47.33 Obstructive sleep apnea (adult) (pediatric); E55.9 Vitamin D deficiency, unspecified
CPT/HCPCS: 36415; 80053; 80185; 82607; 82652; 82747; 83090; 83921; 85025

== ENCOUNTER 2025-03-11 11:15 | Outpatient (CLI) | payer OTHER, MEDICARE, MEDICAID, SELFPAY ==
--- OUTSIDE RECORDS SUMMARY | 2025-03-11 11:31 | XMS_ITS | CONTINUITY OF CARE DOCUMENT ---
Author Name araceli charles Address Unknown Organization [facility] Address [address] [place] [address] Phone [phone] Care Team Providers Care Granulator Tender Name Role Phone Thomas Vazquez MD Unavailable MARIANA FISHER MD Unavailable MARIANA FISHER MD Unavailable PROBLEMS Condition Status Date Provider Notes Numbness, hand active Thomas Vazquez MD Abnormal cardiovascular stress test active Thomas Vazquez MD HTN essential active Thomas Vazquez MD Snoring active Thomas Vazquez MD Chest pain-type to be determined active Иван Vazquez MD Seizure Disorder active Thomas Vazquez MD Cardiology examination active Thomas gutierrez MD ENCOUNTERS Date Type Provider Location Encounter Diag nosis - In-person encounter Office Visit Thomas Vazquez MD [facility] Numbness, hand - In-person encounter Office Visit Thomas Vazquez MD [facility] - In-person encounter Office Visit Thomas Vazquez MD [facility] HTN essentialAbnormal cardiovascular stress test - In-person encounter Office Visit Thomas Vazquez MD [facility] Cardiology examinationSeizure DisorderChest pain-type to be determinedSnoring VITAL SIGNS Date Observation Value Provider Body Mass Index (Ratio) 40.60 kg/m2 Omar as [place] Body Mass Index (Ratio) 40.23 kg/m2 Omar as Evangelina blood pressure, cuff size regular jona [place] blood pressure, diastolic 82 mm[Hg] Fa [facility] blood pressure, systolic 138 mm[Hg] [facility] 84 /min [facility] oxygen saturation, oximetry 99 % [facility] respiratory rate E&M 16 /min Ana Thelma iller weight E&M 220 [lb_av] [facility] height E&M 62 [in_i] Ana Varela blood pressure, diastolic 102 mm[Hg] Nithya Pratt blood pressure, systolic 145 mm[Hg] She chin Pratt pulse rate 81 /min Montserrat Pratt oxygen saturation, oximetry 99 % Montserrat Pratt weight E&M 222 [lb_av] Montserrat Pratt respiratory rate E&M 20 /min Montserart Pratt blood pressure, cuff size large chuy Pratt height E&M 62 [in_i] Montserrat Pratt Body Mass Index (Ratio) 39.32 kg/m2 Gabby Vazquez MD blood pressure, diastolic -1 mm[Hg] Marylin nkLogsheila blood pressure, systolic 141 mm[Hg] Kate Betts blood pressure, diastolic 101 mm[Hg] St shyam Benjamin blood pressure, systolic 141 mm[Hg] Alta Benjamin oxygen saturation, oximetry 97 % Stephanie Benjamin pulse rate 93 /min Stephanie Benjmain respiratory rate E&M 18 /min Stephanie dhillon weight E&M 215 [lb_av] Stephanie Benjamin height E&M 62 [in_i] Stephanie Sourav weight E&M 215 [lb_av] Jenny Colon in Body Mass Index (Ratio) 39.32 kg/m2 Gabby Vazquez MD blood pressure, cuff size large Ke rri Tavares blood pressure, diastolic 100 mm[Hg] Ke rri Tavares blood pressure, systolic 152 mm[Hg] Medardo Chapin oxygen saturation, oximetry 100 % Nuria Chapin respiratory rate E&M 12 /min Nuria maynard pulse rate 80 /min Nuria Weiss lder weight E&M 215 [lb_av] Nuria Weiss lder height E&M 62 [in_i] Nuria Weiss lder ALLERGIES Allergy Name Onset Date Reaction Criticality Status EGGS High Criticality active SULFA High Criticality active HISTORY OF MEDICATION USE Medication Status Instructions Dates Provider Indications Com ments lorazepam 0.5 mg tablet active Nuria Chapin phenytoin sodium extended 100 mg capsule active Nuria Chapin SOCIAL HISTORY Date Observation Value Provider smoking status Never smoker Thomas gutierrez MD social history reviewed E&M revi ewed - no changes required Thomas Vazquez MD social history E&M S moking History: Beba coley has never smoked. Thomas Vazquez MD social history E&M S moking History: Beba coley has never smoked. Thomas Vazquez MD social history reviewed E&M revi ewed - no changes required Thomas Vazquez MD smoking status Never smoker Stephanie Benjamin social history reviewed E&M revi ewed - no changes required Thomas Vazquez MD social history E&M S moking History: Beba coley has never smoked. Thomas Vazquez MD smoking status Never smoker Nuria Joel dhillon INSURANCE PROVIDERS Payer name Policy type / Coverage type Eloise red green party ID [place] [id number] [facility] [id number] Other [id number] [facility] Medicaid 1 [id number] ADVANCE DIRECTIVES Name Date DISCUSSED - NO DECISION MADE TREATMENT PLAN Date Name Performer [id number],C, N ormal LV function on echo. C ONCLUSIONS: 1 . Normal left ventricular systolic function. Normal left ventricular size. Mild concentric left ventricular hypertrophy. There is E to A wave reversal consistent with impaired LV relaxation. E/E': 5.7 Left ventricular ejection fraction is measured at 60 %. 2 . Normal right ventricular size. Normal right ventricular systolic function. 3 . There is mild tricuspid regurgitation. IVC is normal in size with normal respiratory response. Estimated peak pulmonary a rtery systolic pressure is 12.0 mmHg. 4 . No significant valvular abnormalities. Thomas Vazquez MD [id number],C, E quivocal stress test will decide if they want nuclear in three months or has recurrent symptoms July 25, 2023 W ill check if she has recurrent symptoms currently feels good using CPAP. Wants to defer having a stress. Thomas Vazquez MD [id number],C, O n Dilatin Thomas Vazquez MD [id number],C, S he has defered having nuclear stress at present. WIll determine if there is recurrence of symptoms. Follow up in 3 months July 25, 2023 s elsa she has gotten her CPAP she has gotten better and prefers not to have repeat stress test done Thomas Vazquez MD [id number],C, C PAP titration or autoPAP. Has moderate COMFORT. July 25, 2023 s tarted using CPAP notices improvement. and her energy levels, alertness. recommended she uses it when she takes naps too. Thomas Vazquez MD [id number],S,S he has defered having nuclear stress at present. WIll determine if there is recurrence of symptoms. Follow up in 3 months Thomas Vazquez MD [id number],S,Normal LV fun ction on echo. Thomas Vazquez MD [id number],S,R ecommend for her to start amlodipine 25 mg and chlorothalidone for BP. Thomas Vazquez MD [id number],C,C PAP titration or autoPAP. Has moderate COMFORT. Thomas Vazquez MD [id number],S,E quivocal stress test will decide if they want nuclear in three months or has recurrent symptoms Thomas Vazquez MD [id number],S,Check home sl eep study Thomas Vazquez MD [id number],C,S chedule for treadmill stress test, 2D echo. Thomas Vazquez MD [id number],C,On Dilatin Sa scooter Vazquez MD Cardiology:likely [facility] [place] [facility] notes that the right hand cramps up when writing may be the issue causng numbness when she wakes up will recommend to discuss with neurologist for w/u Thomas Vazquez MD Cardiology: O n Dilatin January 23, 2024 f dillon martinez neurologyist and they pcp check dilantin levels Thomas Vazquez MD Cardiology: S he has defered having nuclear stress at present. WIll determine if there is recurrence of symptoms. Follow up in 3 months July 25, 2023 s elsa she has gotten her CPAP she has gotten better and prefers not to have repeat stress test done January 23, 2024 N O NEW ISSUES DOES NOT WANT TO PROCEED WITH ANY FURTHER W/U SHE HAS NOT HAD NEW SYMPTOMS Thomas Vazquez MD Cardiology: C PAP titration or autoPAP. Has moderate COMFORT. July 25, 2023 s tarted using CPAP notices improvement. and her energy levels, alertness. recommended she uses it when she takes naps too. January 23, 2024 T he patient is using CPAP on a regular basis. The patient has been benefiting from therapy and should continue use. Thomas Vazquez MD Cardiology: N ormal LV function on echo. C ONCLUSIONS: 1 . Normal left ventricular systolic function. Normal left ventricular size. Mild concentric left ventricular hypertrophy. There is E to A wave reversal consistent with impaired LV relaxation. E/E': 5.7 Left ventricular ejection fraction is measured at 60 %. 2 . Normal right ventricular size. Normal right ventricular systolic function. 3 . There is mild tricuspid regurgitation. IVC is normal in size with normal respiratory response. Estimated peak pulmonary a rtery systolic pressure is 12.0 mmHg. 4 . No significant valvular abnormalities. Thomas Vazquez MD Cardiology: E quivocal stress test will decide if they want nuclear in three months or has recurrent symptoms July 25, 2023 W ill check if she has recurrent symptoms currently feels good using CPAP. Wants to defer having a stress. Thomas Vazquez MD Cardiology: O n Dilatin Thomas Vazquez MD Cardiology: S he has defered having nuclear stress at present. WIll determine if there is recurrence of symptoms. Follow up in 3 months July 25, 2023 s elsa she has gotten her CPAP she has gotten better and prefers not to have repeat stress test done Thomas Vazquez MD Cardiology: C PAP titration or autoPAP. Has moderate COMFORT. July 25, 2023 s tarted using CPAP notices improvement. and her energy levels, alertness. recommended she uses it when she takes naps too. Thomas Vazquez MD Cardiology:She has d efered having nuclear stress at present. WIll determine if there is recurrence of symptoms. Follow up in 3 months Thomas Vazquez MD Cardiology:Normal LV function on echo. Thomas Vazquez MD Cardiology:Recommend for her to start amlodipine 25 mg and chlorothalidone for BP. Thomas Vazquez MD Cardiology:CPAP titr ation or autoPAP. Has moderate COMFORT. Thomas Vazquez MD Cardiology:Equivocal stress test will decide if they want nuclear in three months or has recurrent symptoms Thomas Vazquez MD Cardiology:Check home sleep stud y Thomas Vazquez MD Cardiology:Schedule for treadmill stress test, 2D echo. Thomas Vazquez MD Cardiology:On Dilatin Thomas Vazquez MD Date Name EKG Sleep Study Titratio n Sleep Study Home Stress Routine Complete Echo HISTORY OF PROCEDURES Procedure Date Procedure Name Provider Procedure Notes S tatus EKG Thomas Vazquez MD compl eted EKG Thomas Vazquez MD compl eted
--- OUTSIDE RECORDS SUMMARY | 2025-03-11 11:31 | XMS_ITS | Clinical Summary ---
Author Organization 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 Gender Identity Not on file Sexual Orientation Not on file Plan of Treatment Health Maintenance Due Date Last Done Comments Hepatitis C Virus (HCV) Screening 1976 TdaP Immunization 1976 Hepatitis B Immunization (1 of 3 - 19+ 3-dose series) 1995 Pap Smear 1997 Cervical Cancer Screening (CCS) 2006 HPV/Cotest 2006 Discussion re Starting/Frequ ency of Mammograms 2016 Colonoscopy 2021 Colorectal Cancer Screening 2021 Influenza Immunization (#1) 2024 SARS-COV-2 Immunization ( season) 2024 Respiratory Syncytial Virus (RSV) Immunization (Adult) (1 - 1-dose 75+ series) 2051 Meningococcal Immunization (ACWY) Aged Out No longer eligible based on patient's age to complete this topic Pneumococcal Immunization Combined Aged Out No longer eligible based on patient's age to complete this topic Rotavirus Immunization Aged Out No lo nger eligible based on patient's age to complete this topic
--- OUTSIDE RECORDS SUMMARY | 2025-03-11 11:31 | XMS_ITS | Data Portability ---
Author Organization LYLA Ganesh BAHENA Address [address] [place] [address] Care Team Providers Care [employer] Supervisor Name Role Phone MIGUEL PANDA Product Owner [phone] Assessment No assessment recorded. Plan of Treatment Reminders Order Date Submit Date Provider Last Modified By Organization Details Last Modified Time Details Appointments ANY 15 2024 09:00A Thelma Quiroga MD Not available Not available Not available Lab HbA1c (hemoglob in A1c), blood 2023 024 [facility], [address], [address], [place], [address], 05/25/2024 15:13:07 basic metabolic 1998 panel, serum or plasma 2023 024 [facility], [address], [address], [place], [address], 05/25/2024 15:13:07 CBC 2023 024 [facility], [address], [address], [place], [address], 05/25/2024 15:13:09 urinalysi s, dipstick 2023 024 [facility], [address], [address], [place], [address], 05/25/2024 15:13:08 lipid panel, serum 2023 024 [facility], [address] [facility], [address], [place], [address], 05/25/2024 15:13:06 lipoprote in a, qn, serum 2023 024 [facility], [address] [facility] [address], [place], [address], 05/25/2024 15:13:05 Referral nutrition ist/dieti lorie referral - Pre-DM, Hyperlipi demia 2023 024 [facility] Hims Clerk Nutrition Dietitian, [address] [place], [address], 08/10/2024 09:01:09 Procedures None recorded. Surgeries None recorded. Imaging None recorded. Medication Orders losartan 100 mg tablet 2023 024 [facility] #[id number], [address], [place], [id number], 11/10/2024 15:48:58 metoprolo l succinate ER 25 mg tablet,ex tended release 24 hr 2023 024 [facility] #19384, [address], [place], [id number], 11/10/2024 15:48:57 metoprolo l succinate ER 25 mg tablet,ex tended release 24 hr 2023 024 [facility] #99930, [address], [place], [id number], 10/13/2024 17:01:03 nifedipin e ER 30 mg tablet,ex tended release 2023 024 [facility] #85986, [address], [place], [id number], 10/13/2024 16:49:02 losartan 100 mg tablet 2023 024 [facility] #13796, [address], [place], [id number], 09/09/2024 16:16:22 aspirin 81 mg tablet,de layed release 2023 024 [facility] #18791, [address], [place], [id number], 06/23/2024 11:59:30 albuterol sulfate HFA 90 mcg/actua tion aerosol inhaler 2023 024 [facility] #82560, [address], [place], [id number], 06/23/2024 11:55:51 losartan 100 mg tablet 2023 024 [email or web address] #39591, [address], [place], [id number], 06/23/2024 12:15:14 EpiPen 2-Isidro 0.3 mg/0.3 mL injection , auto-inje ctor 2023 024 [email or web address] #13170, [address], [place], [id number], 05/24/2024 10:03:50 losartan 50 mg tablet 2023 024 [facility] #70702, [address], [place], [id number], 06/23/2024 12:11:31 Patient TargetsNo targets recorded. 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 Low CHO, low saturated fat diet Increase Losartan to 100 mg Follow up in 3-4 weeks oajao Not available 06/23/2024 12:02:35 09/09/2024 [id number] Add Nifedipine t o Losartan Follow up in 4 weeks oajao Not available 09/09/2024 16:16:17 10/13/2024 [id number] Start Metoprolol ER 25 mg Continue Losartan 100 mg Follow up in 4 weeks oajao Not available 10/13/2024 16:55:43 11/10/2024 [id number] Take blood pressure medications as prescribed Follow up in 6 months and PRN oajao Not available 11/10/2024 15:48:35 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 Body mass index 40+ - severely obese Pre-DM, Hyperlipidemia Referring Physician: Nenita Quiroga, Internal Medicine, Encounter Date: 06/23/2024 Results Created Date Observation Date Name Description Value Unit Range Abnormal Flag Note LastModifiedBy Organization Detail LastModifiedTime 05/24/20 24 05/25/2024 LIPOP ROTEI N (A) lipoprotein (A) 237.2 nmol/ L <75.0 above high normal Note: Value s great er than or equal to 75.0 nmol/ L may indic ate an indep enden t risk facto r for CHD, but must be evalu ated with cauti on when appli ed to non-C aucas desirae popul ation s due to the influ ence of reva ic facto rs on Lp(a) acros s ethni citie s. Not Available [facility] ([facility]) [address] [facility], [place], [address], 05/25/2024 15:13:05 05/24/20 24 05/25/2024 LIPID PANEL cholesterol, total 206 mg/dL 100-19 9 above high normal Not Available [facility] ([facility]) [address] [place], [address], 05/25/2024 15:13:06 05/24/20 24 05/25/2024 LIPID PANEL triglyceride s 70 mg/dL 0-149 Not Available [facility] ([facility]) [address] [place], [address], 05/25/2024 15:13:06 05/24/20 24 05/25/2024 LIPID PANEL HDL cholesterol 67 mg/dL >39 Not Available [facility] ([facility]) [address] [place], [address], 05/25/2024 15:13:06 05/24/20 24 05/25/2024 LIPID PANEL VLDL cholesterol guido 13 mg/dL 5-40 Not Available [facility] ([facility]) [address] [place], [address], 05/25/2024 15:13:06 05/24/20 24 05/25/2024 LIPID PANEL LDL chol calc ([facility]) 126 mg/dL 0-99 above high normal Not Available [facility] ([facility]) [address] [place], [address], 05/25/2024 15:13:06 05/24/20 24 05/25/2024 BASIC METAB OLIC PANEL (7) glucose 97 mg/dL 70-99 Not Available [facility] ([facility]) [address] [place], [address], 05/25/2024 15:13:07 05/24/20 24 05/25/2024 BASIC METAB OLIC PANEL (7) BUN 7 mg/dL 6-24 Not Available [facility] ([facility]) [address] [place], [address], 05/25/2024 15:13:07 05/24/20 24 05/25/2024 BASIC METAB OLIC PANEL (7) creatinine 0.75 mg/dL 0.57-1 .00 Not Available [facility] ([facility]) [address] [facility] [place], [address], 05/25/2024 15:13:07 05/24/20 24 05/25/2024 BASIC METAB OLIC PANEL (7) eGFR 98 mL/mi n/1.7 3 >59 Not Available [facility] ([facility]) [address] [facility], [place], [address], 05/25/2024 15:13:07 05/24/20 24 05/25/2024 BASIC METAB OLIC PANEL (7) BUN/creatini ne ratio 9 9-23 Not Available [facility] ([facility]) [address] [facility], [place], [address], 05/25/2024 15:13:07 05/24/20 24 05/25/2024 BASIC METAB OLIC PANEL (7) sodium 140 mmol/ L 134-14 4 Not Available [facility] ([facility]) [address] [facility] [place], [address], 05/25/2024 15:13:07 05/24/20 24 05/25/2024 BASIC METAB OLIC PANEL (7) potassium 4.7 mmol/ L 3.5-5. 2 Not Available [facility] ([facility]) [address] [place], [address], 05/25/2024 15:13:07 05/24/20 24 05/25/2024 BASIC METAB OLIC PANEL (7) chloride 104 mmol/ L 96-106 Not Available [facility] ([facility]) [address] [place], [address], 05/25/2024 15:13:07 05/24/20 24 05/25/2024 BASIC METAB OLIC PANEL (7) carbon dioxide, total 24 mmol/ L 20-29 Not Available [facility] ([facility]) [address] [facility], [place], [address], 05/25/2024 15:13:07 05/24/20 24 05/25/2024 HEMOG LOBIN A1C hemoglobin A1C 6.2 % 4.8-5. 6 above high normal Predi abete s: 5.7 - 6.4 Diabe kaleb: >6.4 Glyce sam contr ol for adult s with diabe kaleb: <7.0 Not Available [facility] ([facility]) [address] [facility], [place], [address], 05/25/2024 15:13:07 05/24/20 24 05/25/2024 URINA LYSIS , ROUTI NE specific gravity 1.020 1.005- 1.030 Not Available [facility] ([facility]) [address] [facility], [place], [address], 05/25/2024 15:13:08 05/24/20 24 05/25/2024 URINA LYSIS , ROUTI NE pH 6.5 5.0-7. 5 Not Available [facility] ([facility]) [address] [facility], [place], [address], 05/25/2024 15:13:08 05/24/20 24 05/25/2024 URINA LYSIS , ROUTI NE urine-color YELLOW yellow Not Available [facility] ([facility]) [address] [place], [address], 05/25/2024 15:13:08 05/24/20 24 05/25/2024 URINA LYSIS , ROUTI NE appearance CLEAR clear Not Available [facility] ([facility]) [address] [facility], [place], [address], 05/25/2024 15:13:08 05/24/20 24 05/25/2024 URINA LYSIS , ROUTI NE WBC esterase NEGATI VE negati ve Not Available [facility] ([facility]) [address] [place], [address], 05/25/2024 15:13:08 05/24/20 24 05/25/2024 URINA LYSIS , ROUTI NE protein NEGATI VE negati ve/tra ce Not Available [facility] ([facility]) [address] [place], [address], 05/25/2024 15:13:08 05/24/20 24 05/25/2024 URINA LYSIS , ROUTI NE glucose NEGATI VE negati ve Not Available [facility] ([facility]) [address] [place], [address], 05/25/2024 15:13:08 05/24/20 24 05/25/2024 URINA LYSIS , ROUTI NE ketones NEGATI VE negati ve Not Available [facility] ([facility]) [address] [place], [address], 05/25/2024 15:13:08 05/24/20 24 05/25/2024 URINA LYSIS , ROUTI NE occult blood NEGATI VE negati ve Not Available [facility] ([facility]) [address] [place], [address], 05/25/2024 15:13:08 05/24/20 24 05/25/2024 URINA LYSIS , ROUTI NE bilirubin NEGATI VE negati ve Not Available [facility] ([facility]) [address] [place], [address], 05/25/2024 15:13:08 05/24/20 24 05/25/2024 URINA LYSIS , ROUTI NE urobilinogen ,semi-qn 0.2 mg/dL 0.2-1. 0 Not Available [facility] ([facility]) [address] [place], [address], 05/25/2024 15:13:08 05/24/20 24 05/25/2024 URINA LYSIS , ROUTI NE nitrite, urine NEGATI VE negati ve Not Available [facility] ([facility]) [address] [facility], [place], [address], 05/25/2024 15:13:08 05/24/20 24 05/25/2024 URINA LYSIS , ROUTI NE microscopic examination COMMEN T Micro scopi c not indic ated and not perfo rmed. Not Available [facility] ([facility]) [address] [facility], [place], [address], 05/25/2024 15:13:08 05/24/20 24 05/25/2024 CBC, PLATE LET, NO DIFFE RENTI AL WBC 5.7 x10e3 /uL 3.4-10 .8 Not Available [facility] ([facility]) [address] [facility], [place], [address], 05/25/2024 15:13:08 05/24/20 24 05/25/2024 CBC, PLATE LET, NO DIFFE RENTI AL RBC 5.51 x10e6 /uL 3.77-5 .28 above high normal Not Available [facility] ([facility]) [address] [facility], [place], [address], 05/25/2024 15:13:08 05/24/20 24 05/25/2024 CBC, PLATE LET, NO DIFFE RENTI AL hemoglobin 14.4 g/dL 11.1-1 5.9 Not Available [facility] ([facility]) [address] [facility], [place], [address], 05/25/2024 15:13:08 05/24/20 24 05/25/2024 CBC, PLATE LET, NO DIFFE RENTI AL hematocrit 45.3 % 34.0-4 6.6 Not Available [facility] ([facility]) [address] [facility], [place], [address], 05/25/2024 15:13:08 05/24/20 24 05/25/2024 CBC, PLATE LET, NO DIFFE RENTI AL MCV 82 fL 79-97 Not Available [facility] ([facility]) [address] [facility], [place], [address], 05/25/2024 15:13:08 05/24/20 24 05/25/2024 CBC, PLATE LET, NO DIFFE RENTI AL MCH 26.1 pg 26.6-3 3.0 below low normal Not Available [facility] ([facility]) [address] [facility], [place], [address], 05/25/2024 15:13:08 05/24/20 24 05/25/2024 CBC, PLATE LET, NO DIFFE RENTI AL MCHC 31.8 g/dL 31.5-3 5.7 Not Available [facility] ([facility]) [address] [facility], [place], [address], 05/25/2024 15:13:08 05/24/20 24 05/25/2024 CBC, PLATE LET, NO DIFFE RENTI AL RDW 12.8 % 11.7-1 5.4 Not Available [facility] ([facility]) [address] [facility], [place], [address], 05/25/2024 15:13:08 05/24/20 24 05/25/2024 CBC, PLATE LET, NO DIFFE RENTI AL platelets 262 x10e3 /uL 150-45 0 Not Available [facility] ([facility]) [address] [place], [address], 05/25/2024 15:13:08 Result Notes None recorded. Problems Name Problem SNOMED Code Status Onset Date Resolution Date Notes Provider Name and Address Organization Details Recorded Time Prediabete s 641015382 Active 2018 Not Available [facility] 4 16:53:31 Disorder of lipid metabolism 812321934 Active 2020 Not Available [facility] 4 16:53:31 Acute pharyngiti s 748438761 Active Not Available [facility] 4 16:53:31 History of anaphylaxi s 0712872463696 9104 Active 2021 Not Available [facility] 4 16:53:31 Chest pain 07432662 Active Not Available [facility] 4 16:53:31 Obstructiv e sleep apnea syndrome 22258112 Active 2022 Not Available [facility] 4 16:53:31 Seizure 06562139 Active Not Available [facility] 4 16:53:31 Benign hypertensi on 31665499 Active Not Available [facility] 4 16:53:31 Overweight 412790884 Active Not Available [facility] 4 16:53:31 Asthma 472572910 Active Not Available [facility] 4 16:53:31 Impaired fasting glycemia 908837103 Active Not Available [facility] 4 16:53:31 Problem Notes None recorded. Procedures Surgical History Date Name Laterality Status Provider Name and Address Organization Details Recorded Time 05/09/20 23 Colonoscopy completed Nenita Quiroga MD Attn: Accounting[address] [place], [address], [facility] 05/14/2023 06:13:01 10/26/20 20 Removal of fallopian tube completed Nenita Quiroga MD Attn: Accounting[address] [place], [address], [facility] 12/13/2020 13:00:17 10/26/20 20 Total hysterectomy completed Nan Salas MD Attn: Accounting[address] [place], [address], [facility] 07/09/2023 11:55:29 05/18/20 08 Tubal Ligation completed Bev Vazquez [place] [facility] 01/31/2017 16:16:46 Imaging Results None recorded. Procedure Notes None recorded. Medical Equipment None Reported. Allergies Allergen ID Allergen Name Allergen Category Reaction Reaction Severity Criticality Documentation Date Start Date Code Code System Note Provider Name and Address Organization Details Recorded Time 02986 Substance with sulfonami de structure and antibacte rial mechanism of action (substanc e) medicatio n Not available Not available Not available 08/07/2015 35840 8003 SNOMED Other react ions and sever ities : 'Adve rse react ion to subst ance' . Not Available Not Available Not Available 75007 egg extract food,medi cation angioedem a severe Not available 08/07/2015 23770 15 RxNorm Not Available Not Available Not Available Medications Name Sig Start Date Stop Date Status Note LastModified by Organization Details LastModified Time losartan 50 mg tablet TAKE 1 TABLET BY MOUTH EVERY DAY DIRECTED active Not Available Not Available No t Available amoxicill in 500 mg capsule TAKE 2 CAPSULES BY MOUTH EVERY DAY FOR 10 DAYS 07/02 completed Not Available Not Available Not Available hydrocodo ne 7.5 mg-ibupro fen 200 mg tablet 06/21 completed Not Available Not Available Not Available ibuprofen 800 mg tablet TAKE 1 TABLET BY MOUTH EVERY 6 HOURS NEEDED 08/07 completed Not Available Not Available Not Available ondansetr on HCl 8 mg tablet 02/04 completed Not Available Not Available Not Available ondansetr on HCl 4 mg tablet TK 1 T PO Q 6 H PRN 08/07 completed Not Available Not Available Not Available prednison e 20 mg tablet TAKE 2 TABLETS BY MOUTH DAILY FOR 5 DAYS 05/24 completed Not Available Not Available Not Available Clotrimaz ole-7 1 % vaginal cream APPLY TOPICALL Y TO THE AFFECTED AND SURROUND ING AREAS TWICE DAILY IN THE MORNING AND IN THE EVENING 03/14 completed Not Available Not Available Not Available amlodipin e 2.5 mg tablet TAKE 1 TABLET BY MOUTH EVERY DAY DIRECTED 01/22 completed Not Available Not Available Not Available phenytoin sodium extended 100 mg capsule TAKE 2 CAPSULES BY MOUTH TWICE DAILY active Not Available Not Available No t Available nifedipin e ER 30 mg tablet,ex tended release TAKE 1 TABLET BY MOUTH EVERY DAY AT BEDTIME FOR HYPERTEN [place] 10/13 completed Not Available Not Available Not Available acetamino phen 300 mg-codein e 30 mg tablet 06/21 completed Not Available Not Available Not Available chlorthal idone 25 mg tablet TAKE 1 TABLET BY MOUTH EVERY DAY DIRECTED 01/22 completed Not Available Not Available Not Available ciproflox acin 500 mg tablet TK 1 T PO BID FOR 7 DAYS 11/30 completed Not Available Not Available Not Available peg-elect rolyte solution 420 gram oral solution 12/06 /2023 completed Not Available Not Available Not Available aspirin 81 mg tablet,de layed release TAKE 1 TABLET BY MOUTH ONCE DAILY active Not Available Not Available No t Available ketorolac 30 mg/mL (1 mL) injection solution 30 mg by injectio n route. 07/07 completed Not Available Not Available Not Available oxycodone -acetamin ophen 5 mg-325 mg tablet TAKE 1 TABLET BY MOUTH EVERY 6 HOURS NEEDED FOR PAIN 10/29 completed Not Available Not Available Not Available amoxicill in 875 mg tablet 06/21 completed Not Available Not Available Not Available famotidin e 20 mg tablet Take by oral route for 10 days. 10/22 completed Not Available Not Available Not Available lorazepam 0.5 mg tablet TAKE 1 TABLET BY MOUTH EVERY 8 HOURS NEEDED 10/29 completed Not Available Not Available Not Available phenytoin sodium 50 mg/mL intraveno us solution 500 mg by intraven . route. 08/29 completed Not Available Not Available Not Available cephalexi n 500 mg capsule 08/05 completed Not Available Not Available Not Available losartan 25 mg tablet TK1T BY MOUTH EVERY DAY FOR 90 DAYS 11/26 completed Addendum Increase Losartan to 50 mg po daily Not Available Not Available Not Available monteluka st 10 mg tablet Take 1 tablet every day by oral route for 90 days. 06/03 completed Not Available Not Available Not Available bisacodyl 5 mg tablet,de layed release TAKE ALL 6 TABLETS BY MOUTH AT ONCE AT 8AM ON 05/08. 10/29 completed Not Available Not Available Not Available sodium chloride 0.9 % intraveno us solution 50 mL by intraven . route. 08/29 completed Not Available Not Available Not Available metoprolo l succinate ER 25 mg tablet,ex tended release 24 hr Take 1 tablet every day by oral route as directed for 90 days, for HTN. active Not Available Not Available No t Available epinephri ne 0.3 mg/0.3 mL injection , auto-inje ctor Take 0.3 mg every hour by injectio n route as needed for 1 day, for Severe allergic reaction . active Not Available Not Available No t Available ibuprofen 600 mg tablet TAKE 1 TABLET BY MOUTH EVERY 6 HOURS NEEDED FOR CRAMPING 08/07 completed Not Available Not Available Not Available methylpre dnisolone 4 mg tablets in a dose pack 01/31 completed Not Available Not Available Not Available albuterol sulfate HFA 90 mcg/actua tion aerosol inhaler INHALE 2 PUFFS BY MOUTH EVERY 4 HOURS NEEDED FOR ASTHMA active Not Available Not Available No t Available losartan 100 mg tablet Take 1 tablet every day by oral route at bedtime for 90 days, for HTN. active Not Available Not Available No t Available clotrimaz ole 1 % topical cream APPLY TO THE AFFECTED AND SURROUND ING AREAS OF SKIN BY TOPICAL ROUTE 2 TIMES PER DAY IN THE MORNING AND EVENING 03/14 completed Not Available Not Available Not Available naproxen 500 mg tablet TAKE 1 TABLET BY MOUTH EVERY 12 HOURS WITH FOOD NEEDED active Not Available Not Available No t Available diazepam 5 mg tablet 06/21 completed Not Available Not Available Not Available metoclopr amide 10 mg tablet TK 1 T PO Q 6 H PRF NAUSEA OR VOM 11/30 completed Not Available Not Available Not Available azithromy brent 500 mg tablet 02/04 completed Not Available Not Available Not Available nitrofura ntoin monohydra te/macroc rystals 100 mg capsule TK 1 C PO Q 12 H FOR 5 DAYS WF 11/30 completed Not Available Not Available Not Available EpiPen 03/14 completed Not Available Not Available Not Available Pulmicort Flexhaler 90 mcg/actua tion breath activated 2 puffs inhaled BID 06/21 completed Not Available Not Available Not Available hydrochlo rothiazid e 12.5 mg tablet Take 1 tablet every day by oral route as directed for 90 days. 06/03 completed Not Available Not Available Not Available Pulmicort Flexhaler 180 mcg/actua tion breath activated Inhale 2 puffs twice a day by inhalati on route as directed for 90 days. 11/22 completed Changed to Joseph Viverosta 11/21/20 21 Not Available Not Available Not Available FeroSul 325 mg (65 mg iron) tablet TAKE 1 TABLET BY MOUTH TWICE DAILY 08/07 completed Not Available Not Available Not Available Asmanex Twisthale r 110 mcg/actua tion(30 doses) breath activated inhalr One inhalati on Q PM 11/22 completed Not Available Not Available Not Available levetirac etam ER 500 mg tablet,ex tended release 24 hr active Not Available Not Available Not Available Arnuity Ellipta 100 mcg/actua tion powder for inhalatio n One puff inhaled once a day 07/02 completed Not Available Not Available Not Available albuterol sulfate 90 mcg/actua tion breath activated powder inhaler Inhale 2 puffs every 4 hours by inhalati on route. 10/22 completed Not Available Not Available Not Available Qvar RediHaler 40 mcg/actua tion HFA breath activated aerosol Inhale 1 inhalati on twice a day by inhalati on route as directed for 30 days. 10/29 completed Not Available Not Available Not Available Vitals Date Recorded Body height Body mass index (BMI) Body weight Oxygen saturation Oxygen saturation in Arterial blood by Pulse oximetry Heart rate Respiratory rate Systolic blood pressure Diastolic blood pressure Provider Name and Address Organization Details Last Updated DateTime 4 154.31 cm 42.2 kg/m2 984339. 35 g 97 % 97 % 72 /min 16 /min 134 mm[Hg] 100 mm[Hg] Bev Vazquez MA [facility] 4 09:33:31 Date Recorded Body height Body mass index (BMI) Body weight Heart rate Oxygen saturation Oxygen saturation in Arterial blood by Pulse oximetry Respiratory rate Body temperature Systolic blood pressure Diastolic blood pressure Provider Name and Address Organization Details Last Updated DateTime 4 154.31 cm 43.8 kg/m2 294136. 25 g 82 /min 97 % 97 % 18 /min 97.7 [degF] 130 mm[Hg] 104 mm[Hg] Bev Vazquez MA [facility] 4 11:18:21 Date Recorded Systolic blood pressure Diastolic blood pressure Provider Name and Address Organization Details Last Updated DateTime 06/23/2024 160 mm[Hg] 100 mm[Hg] Nenita Quiroga MD Attn: Accounting[address] [place], [address], [facility] 06/23/2024 11:54:25 Date Recorded Body height Body mass index (BMI) Body weight Heart rate Oxygen saturation Oxygen saturation in Arterial blood by Pulse oximetry Respiratory rate Systolic blood pressure Diastolic blood pressure Provider Name and Address Organization Details Last Updated DateTime 4 154.31 cm 42.7 kg/m2 074154. 69 g 88 /min 98 % 98 % 16 /min 156 mm[Hg] 90 mm[Hg] Bev Vazquez MA [facility] 4 16:02:50 Date Recorded Body height Body mass index (BMI) Body weight Oxygen saturation Oxygen saturation in Arterial blood by Pulse oximetry Respiratory rate Heart rate Systolic blood pressure Diastolic blood pressure Provider Name and Address Organization Details Last Updated DateTime 4 154.31 cm 42.5 kg/m2 707631. 1 g 98 % 98 % 18 /min 78 /min 144 mm[Hg] 100 mm[Hg] Bev Vazquez MA [facility] 4 16:40:04 Date Recorded Body height Body mass index (BMI) Body weight Oxygen saturation Oxygen saturation in Arterial blood by Pulse oximetry Heart rate Respiratory rate Systolic blood pressure Diastolic blood pressure Provider Name and Address Organization Details Last Updated DateTime 4 154.31 cm 42.4 kg/m2 313829. 94 g 98 % 98 % 82 /min 18 /min 130 mm[Hg] 90 mm[Hg] Bev Vazquez MA [facility] 4 15:23:59 Date Recorded Systolic blood pressure Diastolic blood pressure Provider Name and Address Organization Details Last Updated DateTime 11/10/2024 130 mm[Hg] 96 mm[Hg] Nenita Quiroga MD Attn: Accounting,[address] [place], [address], [facility] 11/10/2024 15:48:08 Social History Question Answer Notes LastModified by Organizat ion Details LastModified Time Tobacco Smoking Status Never Smoker February JAYSON Restrepo, [facility] 08/07/2015 15:46:04 Do You Have An Advance Directive? Yes Information not available 08/21/2022 What Is Your Level Of Alcohol Consumption? Occasional Information not available 06/03/2019 What Is Your Level Of Caffeine Consumption? None Information not available 06/03/2019 How Much Tobacco Do You Chew? None Information not available 06/03/2019 What Type Of Diet Are You Following? REGULAR Information not available 06/03/2019 Are There Any Guns Present In Your Home? No Information not available 06/03/2019 Hard Of Hearing Or Deaf In One Or Both Ears? No Information not available 06/03/2019 Legally Blind In One Or Both Eyes? No Information not available 06/03/2019 Do You Have A Medical Power Of Principal Biostatistician? Yes Information not available 08/21/2022 What Was The Date Of Your Most Recent Tobacco Screening? 11/10/2024 Information not available 11/10/2024 Performs Monthly Self-breast Exam? Yes Information not available 06/03/2019 Seat Belts Used Routinely Yes Information not available 06/03/2019 Smoke Alarm In Home Yes Information not available 06/03/2019 How Much Tobacco Do You Smoke? No Information not available 10/22/2017 Has Tobacco Cessation Counseling Been Provided? No Information not available 06/03/2019 On What Date Was Tobacco Cessation Counseling Provided? 10/29/2021 Shahla Answered No To The Tobacco Cessation Counseling Provided Question On 06/03/2019. Information not available 10/29/2021 How Many Years Have You Smoked Tobacco? 0 Information not available 10/22/2017 Do You Or Have You Ever Used Any Other Forms Of Tobacco Or Nicotine? No Information not available 10/29/2021 Sex: Unknown Functional Status Question Answer Note LastModified by Organization D etails LastModified Time What is your exercise level? None Information not available 06/03/2019 Mental Status None recorded. Family History Nothing Reported. Medical History Condition Response Coronary Artery Disease N Other N High Blood Pressure N Atrial Fibrillation N Kidney or Bladder Problems N Thyroid Problems N GI Problems N Depression N COPD N Blood Clots N Skin Problems N Anemia N Heart Attack ([place]) N Anxiety Disorder N Diabetes N Muscle, Joint, or Bone Problems N Obesity Y Seizures/Epilepsy Y Acid Reflux (GERD) N Cancer N Stroke N Asthma Y Allergies N High Cholesterol N Hepatitis Y Liver Disease N Headaches N Osteoporosis N Heart Failure N Gynecological History Statement/Question Response Current Control Method None Obstetrics History GPAL:G 0 P 0 0 0 0 Immunizations Vaccine Type Date Status Note Provider Nam e and Address Organization Details Recorded Time COVID-19, mRNA, LNP-S, PF, 100 mcg/0.5mL dose or 50 mcg/0.25mL dose 07/28/2021 completed Not Available [facility] 16:53:31 COVID-19, mRNA, LNP-S, PF, 100 mcg/0.5mL dose or 50 mcg/0.25mL dose 08/18/2021 completed Not Available [facility] 4 16:53:31 Hep A, adult 01/27/2006 completed Not Available [facility] 12/30/2023 16:53:32 Hep A, adult 06/22/2013 completed Not Available [facility] 12/30/2023 16:53:32 Hep B, adult 06/22/2013 completed Not Available [facility] 12/30/2023 16:53:32 Hep B, adult 06/03/2016 completed Not Available [facility] 12/30/2023 16:53:32 COVID-19, mRNA, LNP-S, PF, 30 mcg/0.3 mL dose 07/28/2021 completed Not Available [facility] 4 16:53:31 COVID-19, mRNA, LNP-S, PF, 30 mcg/0.3 mL dose 08/18/2021 completed Not Available [facility] 16:53:32 Tdap 06/14/2010 completed Not Available [facility] 12/30/2023 16:53:32 Past Encounters Encounter ID Performer Location Encounter Start Date Encounter Closed Date Diagnosis/Indication Diagnosis SNOMED-CT Code Diagnosis ICD10 Code Diagnosis Note [id number] Charly (Adult Med) [address] [place] [address] 08/07/2015 15:25:36 08/08/2015 12:02:30 Seizure 71772327 Break through seizure in January, she admits to having missed a few doses. She follows up with Dr. Sony Greenberg ex amination of patient 719977037 Benign hypertension 38142478 Overweight 560289042 Asthma [id number] MD Charly Nevarez (Adult Med) [address] [place] [phone] 02/05/2016 15:03:19 02/05/2016 15:45:23 Seizure 67938830 R56.9 Break through seizure in January 2015 and then again 12/06/2015, she had taken herself off her Dilantin in March 2015, she hs however restarted it since her ER visit in November 2015. She has a folllow up appointmen t with the neurologis tDr. Cardoza. She was advised not to drive and she should not climb ladders or operate machinery. 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 Compliance with her medication s was discussed. Impaired f asting glycemia 152933781 R73.01 Benign hypertension 1072 5009 I10 J45.909 Asthma 397244561 J45.90 9 Medication monitoring 39 2782192 Z51.81 [id number] MD Charly Nevarez (Adult Med) [address] [place] [address] 08/05/2016 15:48:54 08/06/2016 09:36:47 Overweight 125430639 E66.3 Impaired f asting glycemia 585140216 R73.01 Discussed Benign hypertension 1072 5009 I10 J45.909 Uncontroll ed today as she did not remember to take her meds today [id number] MD Charly Nevarez (Adult Med) [address] [place] [phone] 0 01/31/2017 15:15:37 01/31/2017 17:49:30 Seizure disorder 949089676 G40.909 Breakthrou gh seizure due to a missed dose, she should not drive, operate machinery and she can return to work. SHe has an appointmen t with her neurologis tDr. Cardoza in June. Benign hypertension 1072 5009 I10 Uncontroll ed due to non compliance [id number] MD Charly Nevarez (Adult Med) [address] [place] [phone] 0 10/22/2017 14:29:15 10/22/2017 16:32:10 Benign hypertension 01841886 I10 Uncontroll ed due to non compliance Noncomplia nce with medication regimen 367222323 Z91.14 Immunization refused 275 639483 Z28.04 Impaired f asting glycemia 434084147 R73.01 Discussed Seizure 34072049 R56.9 Seizure free Medication monitoring 39 7881032 Z51.81 Screening for malignant neoplasm of breast 948167964 Z12.31 Hyperlipid emia screening 754861843 Z13.991 [id number] MD Charly Nevarez (Adult Med) [address] [place] [address] 06/03/2019 11:49:19 06/04/2019 08:35:31 Asthma 738302886 J45.909 She did not think she benefited much from Montelukas t.Start QvarContin ue Albuterol PRNSide effects were discussedT he asthma action plan was discussed General ex amination of patient 327859484 Z00.01 Medication monitoring 39 2823298 Z51.81 Screening for malignant neoplasm of breast 187837063 Z12.31 Prediabetes 151377351 R7 3.03 Discussed [id number] [facility] [address] [place] [address]46[address] 0 06/21/2020 11:39:15 06/21/2020 13:26:12 Asthma 315644792 J45.909 She never did benefit much from Montelukas t.Should be on Qvar or Pulmicort although I think the former is preferred. Continue Albuterol PRN Screening for malignant neoplasm of breast 150101519 Z12.31 Impaired f asting glycemia 532605550 R73.01 Discussed General ex amination of patient 932374176 Z00.01 Seizure 17876220 R56.9 Seizure free [id number] [facility] [address] [place] [phone] 0 11/30/2020 08:10:39 12/01/2020 10:03:02 Asthma 076996711 J45.909 She never did benefit much from Montelukas t.Restart QvarContin ue Albuterol PRN Anemia 429405340 D64.9 Seizure 58495478 R56.9 Seizure free Influenza vaccination declined 462072620 Z28.21 Viral screening 36432258 4 Z11.52 Impaired f asting glycemia 020170724 R73.01 Discussed [id number] MD Charly Nevarez (Adult Med) [address] [place] [address] 0 08/07/2021 09:04:30 08/08/2021 07:49:45 Adult health examination 234967529 Z00.00 Screening mammography of bilateral breasts 4879404753 37908 Z12.31 Medication monitoring 39 7430992 Z51.81 Influenza vaccine needed 5747248847 106 Z28.3 Flublock if available [id number] MD Charly Nevarez (Adult Med) [address] [place] [phone] 0 10/29/2021 15:47:40 10/30/2021 06:31:05 Benign hypertension 65163918 I10 Uncontroll ed. Seizure 12178490 R56.9 Disorder o f lipid metabolism 307469510 E78.9 Discussed Asthma 913968103 J45.90 9 She never did benefit much from Montelukas t.It is unclear if it is the Asmanex that she is having difficulty using, she is to bring it in with her in 12-3 weeks.Cont inue Albuterol PRN [id number] MD Charly Nevarez (Adult Med) [address] [place] [phone] 0 11/22/2021 15:35:29 11/22/2021 19:51:30 Asthma 139142458 J45.909 She never did benefit much from Montelukas t.She should continue the Pulmicort, it appears that it is what is preferred on her formulary instead of Asmanex.Co ntinue Albuterol PRN Impaired f asting glycemia 436855725 R73.01 Discussed Allergy to influenza vaccine 929435242 Z88.7 [id number] MD Charly Nevarez (Adult Med) [address] [place] [address]276[address]757 0 07/02/2022 15:23:21 07/03/2022 10:41:03 Body mass index 40+ - severely obese 958420994 Z68.41 Benign hypertension 1072 5009 I10 Uncontroll ed. Pain of left heel 378180 2150 873870 M79.672 General ex amination of patient 826174698 Z00.01 Screening for malignant neoplasm of breast 070292047 Z12.31 History of anaphylaxis 4138873180 4911280 Z87.606 [id number] MD Charly Nevarez (Adult Med) [address] [place] [address]125[address]286 0 08/13/2022 14:43:50 08/14/2022 10:10:37 Impaired fasting glycemia 776152832 R73.01 Discussed Benign hypertension 1072 5009 I10 Uncontroll ed on Chlorthali doneAdd low dose Amlodipine , side effects were discussed. Immunization advised 310 820192 Z71.9 [id number] JOSH MOJICA DPM [facility] [address] [place] [phone] 2 08/21/2022 15:53:13 08/23/2022 12:20:36 Left Achilles tendinitis 5884340872 14917 M76.62 Onychomycosis 592583771 B35.1 Acquired d eformity of left foot 930046152 M21.6X2 Acquired d eformity of right foot 724079124 M21.6X1 [id number] JOSH MOJICA DPM [facility] [address] [place] [address] 74734-105 2 09/18/2022 15:51:04 09/20/2022 11:44:52 Left Achilles tendinitis 6532466261 56473 M76.62 Onychomycosis 767501030 B35.1 Acquired d eformity of left foot 926615932 M21.6X2 Acquired d eformity of right foot 583513918 M21.6X1 [id number] MD Charly Nevarez (Adult Med) [address] [place] [address]15[address]158 0 03/14/2023 09:18:41 03/17/2023 15:37:42 Follow-up visit 108635768 Z09 Benign hypertension 1072 5009 I10 Uncontroll ed due to non compliance with her Chlorthali done and Amlodipine .Cardiolog y appointmen t today. Imaging of gastrointestinal tract abnormal 328763715 R93.3 Screening for malignant neoplasm of colon 055034497 Z12.[address] Dayanna Petersen Chest pain 59502003 R07. 9 Screening for malignant neoplasm of breast 108630081 Z12.[address] Dayanna Petersen Noncomplia nce with medication regimen 811084178 Z91.A4 [id number] MD Charly Nevarez (Adult Med) [address] [place] [address] 0 04/25/2023 09:39:30 04/28/2023 14:15:11 Obstructive sleep apnea syndrome 08079499 G47.33 She apparently needs a repeat test Follow-up visit 18486321 9 Z09 Screening for malignant neoplasm of breast 963366947 Z12.[address] Dayanna Petersen Impaired f asting glycemia 260759083 R73.01 Discussed Disorder o f lipid metabolism 503190134 E78.9 Discussed [id number] MD Charly Nevarez (Adult Med) [address] [place] [address] 0 10/29/2023 14:56:53 10/30/2023 14:01:17 Impaired fasting glycemia 374366399 R73.01 Discussed Follow-up visit 54141997 9 Z09 Disorder o f lipid metabolism 394754105 E78.9 Discussed Benign hypertension 1072 5009 I10 Restart LosartanPr eviously on HCTZ, Chlorthali done and Amlodipine .Cardiolog y appointmen t today. Seizure 50944702 R56.9 Uncontroll ed [id number] MD Charly Nevarez (Adult Med) [address] [place] [address] 0 11/26/2023 15:34:47 11/27/2023 09:32:22 Impaired fasting glycemia 149832856 R73.01 Discussed Disorder o f lipid metabolism 588867445 E78.9 Discussed Screening for malignant neoplasm of breast 999718391 Z12.[address] Dayanna Petersen Seizure 95526345 R56.9 Setting an alarm and help from her were strategies discussed to help improve her compliance .Neurology follow up (scheduled ) Body mass index 40+ - severely obese 665509274 Z68.41 Stress 60066366 Z73.3 Benign hypertension 1072 5009 I10 AddendumIn crease Losartan to 50 mg po dailyPrevi ously on HCTZ, Chlorthali done and Amlodipine . [id number] MD Charly Nevarez (Adult Med) [address] [place] [address] 75240[address]424 0 05/24/2024 08:50:56 05/25/2024 09:52:13 Benign hypertension 91087031 I10 Restart Losartan 50 mg OV 11/26/2023d dendumIncr ease Losartan to 50 mg po dailyPrevi ously on HCTZ, Chlorthali done and Amlodipine . Impaired f asting glycemia 781097922 R73.01 Disorder o f lipid metabolism 038737062 E78.9 History of anaphylaxis 6493916987 9227539 Z87.892 General ex amination of patient 809727919 Z00.01 [id number] MD Charly Nevarez (Adult Med) [address] [place] [address] 54225[address]722 0 06/23/2024 11:03:44 06/24/2024 14:25:41 Benign hypertension 31571996 I10 Uncontroll edIncrease Losartan to 100 mg po daily, side effects including but not limited to BEYER and dizziness were discussed. OV 4Re start Losartan 50 mg OV 11/26/2023d dendumIncr ease Losartan to 50 mg po dailyPrevi ously on HCTZ, Chlorthali done and Amlodipine . Asthma 974170995 J45.90 9 At [facility] ed risk for cardiovascular event 285464032 Z91.89 2.4 % 10 year risk, unfortunat phyllis her Lipoprotei n (A) is also high (237) Body mass index 40+ - severely obese 413024857 Z68.41 [id number] MD Charly Nevarez (Adult Med) [address] [place] [address] [phone] 0 09/09/2024 15:50:31 09/13/2024 14:08:37 Benign hypertension 13267705 I10 Uncontroll edContinue LosartanAd d Nifedipine 30 mg, side effects including but not limited to dizziness, headaches and LE edema wee discussed OV 7/1/2024Un controlled Increase Losartan to 100 mg po daily, side effects including but not limited to BEYER and dizziness were discussed. OV 05/24/2024e start Losartan 50 mg OV 11/26/2023d dendumIncr ease Losartan to 50 mg po dailyPrevi ously on HCTZ, Chlorthali done and Amlodipine . [id number] [facility] [address] [place] [address] [phone] 0 10/13/2024 16:13:24 10/19/2024 08:57:14 Benign hypertension 15188863 I10 Continue LosartanOf f Nifedipine (Refused)S tart Metoprolol , side effects including but not limited to fatigue, headaches and dizziness were discussed. Cardiology follow up OV 09/09/2024 Uncontroll edContinue LosartanAd d Nifedipine 30 mg, side effects including but not limited to dizziness, headaches and LE edema wee discussed OV 05/24/2024Un controlled Increase Losartan to 100 mg po daily, side effects including but not limited to BEYER and dizziness were discussed. OV 05/24/2024e start Losartan 50 mg OV 11/26/2023d dendumIncr ease Losartan to 50 mg po dailyPrevi ously on HCTZ, Chlorthali done and Amlodipine . [id number] Nenita Quiroga MD [facility] (Adult Med) [address] [place] [address] [phone] 0 11/10/2024 14:59:53 11/11/2024 14:47:52 Benign hypertension 76073062 I10 Better, but uncontroll edShe should take her Losartan and Metoprolol OV 10/13/2024 Continue LosartanOf f Nifedipine (Refused)S tart Metoprolol , side effects including but not limited to fatigue, headaches and dizziness were discussed. Cardiology follow up OV 09/09/2024 Uncontroll edContinue LosartanAd d Nifedipine 30 mg, side effects including but not limited to dizziness, headaches and LE edema wee discussed OV 05/24/2024Un controlled Increase Losartan to 100 mg po daily, side effects including but not limited to BEYER and dizziness were discussed. OV 05/24/2024e start Losartan 50 mg OV 11/26/2023d dendumIncr ease Losartan to 50 mg po dailyPrevi ously on HCTZ, Chlorthali done and Amlodipine . Health Concerns Section Related Observation LastModified by Organization Detai ls LastModified Time None Recorded Concern Status LastModified by Organization Details LastModified Time None Recorded Advance Directives Directive Y: Payers Encounter Date Sequence Insurance Name Policy Number Policy Galindo Covered Member ID Galindo Member ID Guarantor Name 05/24/2024 2 [place] Lamonaretha José Manuel [id number] Lamonaretha José Manuel 05/24/2024 1 [facility] [id number] Lamonaretha José Manuel [id number] PT'S UMR COVERAGE WAS IN Lamonaretha José Manuel 06/23/2024 2 [place] Lamonaretha José Manuel [id number] Lamonaretha José Manuel 06/23/2024 1 [facility] [id number] Lamonaretha José Manuel [id number] PT'S UMR COVERAGE WAS IN Lamonaretha José Manuel 09/09/2024 2 [place] Lamonaretha José Manuel [id number] Lamonaretha José Manuel 09/09/2024 1 [facility] (O) [id number] Lamonaretha José Manuel [id number] PT'S UMR COVERAGE WAS IN Lamonaretha José Manuel 10/13/2024 2 [place] Lamonaretha José Manuel [id number] Lamonaretha José Manuel 10/13/2024 1 [facility] (O) [id number] Lamonaretha José Manuel [id number] PT'S UMR COVERAGE WAS IN Lamonaretha José Manuel 11/10/2024 2 [place] Lamonaretha José Manuel [id number] Lamonaretha José Manuel 11/10/2024 1 [facility] (O) [id number] Lamonaretha José Manuel [id number] PT'S UMR COVERAGE WAS IN Lamonaretha José Manuel Notes Date Note Type Note Provider Name and Address Organization Details Recorded Time 05/24/2024 text/html Hypertension F/UReported bypatient.Associated Symptoms:no dizziness; no lightheadedness; no chest pain; no shortness of breath; no palpitations; no edema; no calf pain with exertion Lifestyle:regular exercise; limiting/avoiding salt Medications:no side effects from medication;not taking medications as directed; checks blood pressure at home, range: (117/70)Medicare Annual Wellness VisitReported bypatient.Diet and Nutrition:healthy diet Fracture Risk:no history of fractures; no recent explained fracture; no sudden unexplained fractures; no previous musculoskeletal injuries Physical Activity:exercises on a regular basis; recent increase in physical activity; good physical condition Depression Risk:never feels sad, empty, or tearful; no loss of interest in activities; no significant changes in weight; no sleep disturbances or insomnia; no agitation; no loss of energy; no feelings of worthlessness or guilt; no thoughts of suicide; no history of depression; no history of mood disorders Orientation:no disorientation to time; no disorientation to date; no disorientation to place Concentration and Memory:no decreased concentrating ability; no memory lapses or loss; does not forget words Speech/Motor difficulties:no speech difficulties; no difficulty expressing formulated concepts; no difficulty with fine manipulative tasks; no difficulty writing/copying; no slowed reaction time; does not knock things over when trying to pick them up Hearing:no loss of hearing Vision:worse with distance Activities of Daily Living:able to bathe with limited or no assistance; able to contol urination and bowels; able to dress with limited or no assistance; able to feed self with limited or no assistance; able to get out of chair or bed with limited or no assistance; able to groom with limited or no assistance; able to toilet with limited or no assistance Instrumental Activities of Daily Living:able to do house work with limited or no assistance; able to grocery shop with limited or no assistance; able to manage medications with limited or no assistance; able to manage money with limited or no assistance; able to prepare meals with limited or no assistance; able to use the phone with limited or no assistance Falls Risk Assessment:no frequent falls while walking; no fall in the past year; no fall since last visit; no dizziness/vertigo Home Safety:no unsafe ranjith hazzards; no unsafe stairs; no unsafe gas appliances; working smoke/CO detectors; wears protective head gear for biking/high velocity; use of seatbelts; no vision or hearing loss while driving; no fire arms; has hand bars in the bathroom/shower; good lighting in the home Here for a follow up, that is all Sometimes, I feel like I don't need it She has not taken her Losartan for a couple of weeks, she feels that she can tell when she needs it.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 Nenita Quiroga MD Attn: Accounting,[address] [facility], [place], [address], [facility] [place] 05/24/2024 10:05:42 06/23/2024 text/html Hypertension F/UReported bypatient.Associated Symptoms:no dizziness; no lightheadedness; no chest pain; no shortness of breath; no palpitations; no edema; no calf pain with exertion Lifestyle:regular exercise; limiting/avoiding salt Medications:taking medications as directed; no side effects from medication; checks blood pressure at home, range: (126/79 (Smart watch)) Recheck my blood pressure It was 108/77 Ms Georges has been compliant with her medications, unfortunately it appears that her smart watch is giving her falsely normal blood pressure readings. Nenita Quiroga MD Attn: Accounting,[address] [place], [address], [facility] [place] 06/23/2024 14:17:29 09/09/2024 text/html Hypertension F/UReported bypatient.Associated Symptoms:no dizziness; no lightheadedness; no chest pain; no shortness of breath; no palpitations; no edema; no calf pain with exertion Lifestyle:regular exercise; limiting/avoiding salt Medications:no side effects from medication;not taking medications as directed Sometimes Just a routine to see what my blood pressure Ms Georges admits that she only takes her Losartan sometimes, but she did take it at 4 Am this morning. She is being seen at ~ 3:15 PM. Nenita Quiroga MD Attn: Accounting,[address] [facility], [place], [address], [facility] [place] 09/09/2024 16:36:29 10/13/2024 text/html Hypertension F/UReported bypatient.Associated Symptoms:no dizziness; no lightheadedness; no chest pain; no shortness of breath; no palpitations; no edema; no calf pain with exertion Lifestyle:regular exercise; limiting/avoiding salt Medications:no side effects from medication;not taking medications as directed Be honest, I just don't like taking medicine period Ms Georges read the side effects of the Nifedipine and was concerned about the edema and something else and never did start it. She has been compliant with the Losartan. Nenita Quiroga MD Attn: Accounting,[address] [place], [address], [facility] [place] 10/13/2024 21:12:56 11/10/2024 text/html Hypertension F/UReported bypatient.Associated Symptoms:no dizziness; no lightheadedness; no chest pain; no shortness of breath; no palpitations; no edema; no calf pain with exertion Lifestyle:regular exercise; limiting/avoiding salt Medications:no side effects from medication;not taking medications as directed I skip like two dose Ms Georges has not taken her Losartan for 48 hours, she took her Metoprolol this morning. Nenita Quiroga MD Attn: Accounting,[address] [place], [address], [facility] [place]10/2024 18:38:10 OBGyn Episode No OBEpisode recorded.
--- OUTSIDE RECORDS SUMMARY | 2025-03-11 11:31 | XMS_ITS | Clinical Summary ---
Author Organization [facility] Address [address] [place] [address] Care Team Providers Care Muck Operator Name Role Phone Unavailable Primary Care Provider Unavailabl e Source Comments [facility],non-owned Affiliates and Associated Physician Practices is amultiple site organization consisting of ambulatory clinics and hospital sitesin [place], [place], [place] and [place]. This disclosure is being madepursuant to the Care Everywhere program and may not contain all information available regarding this patient. 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[employer] Gender Identity Not on file Sexual Orientation Not on file Plan of Treatment Health Maintenance Due Date Last Done Comments COLOGUARD (AGES 45-75) - COL ON CA SCREENING 1976 COLON MONITORING 1976 COLONOSCOPY - COLON CA SCREENING 1976 CT COLONOGRAPHY - COLON CA SCREENING 1976 Colorectal Cancer Screening 1976 FIT - COLON CA SCREENING 1976 FLEX SIG - COLON CA SCREENING 1976 LIPID TESTING 1976 MAMMOGRAM 1976 HIV SCREENING 1991 HEPATITIS C SCREENING 03/31/1994 DTAP/TDAP/TD VACCINES (1 - Tdap) 1995 HEPATITIS B VACCINE (1 of 3 - 19+ 3-dose series) 1995 COVID-19 VACCINE (1 - 2023-2 5 season) 2024 DEPRESSION SCREENING 11/24/2024 INFLUENZA VACCINE (Season Ended) 2025 ZOSTER VACCINE (1 of 2) 2026 HIB VACCINE Aged Out No longer eligi ble based on patient's age to complete this topic HPV VACCINE Aged Out No longer eligi ble based on patient's age to complete this topic MENINGOCOCCAL (Group B) VACC INE SHARED DECISION-MAKING Aged Out No longer eligibl e based on patient's age to complete this topic MENINGOCOCCAL GROUPS A/C/Y/W VACCINE Aged Out No longer eligible b ased on patient's age to complete this topic PNEUMOCOCCAL VACCINE Aged Out No long er eligible based on patient's age to complete this topic Insurance MEDICARE MEDICAID - OUT OF [facility]
[2025-03-11 12:00] LABS: Phenytoin Dilantin 5 ug/mL (10-20)
== END 2025-03-11 11:16 | disposition home or self-care (01) ==
LOC: ANHLAB 11:17
PROVIDERS: PCP Internal Medicine Infectious Disease; Visit Provider Psychiatry & Neurology Neurology
DX: G40.909 Epilepsy, unspecified, not intractable, without status epilepticus (principal)
CPT/HCPCS: 36415; 80185